=== PATIENT | female | born 1950 | race Caucasian/White ===

== ENCOUNTER → 2018-11-09 | Outpatient (CLI) | payer OTHER ==
[~2018-11-09] MED LIST: AMLO5 PO; ATEN50 PO; CALCIUM 600 +1 EAC4 PO; CENTRUM MU9 MG/15 ML PO; CIPR250 PO; ERGO400 PO; ESTER-C 1,0001 EACH PO; ESTMEDA PO; ESTR2 PO; FLUO10; HYDCHL25 PO; HYDR1TAB94 PO; LISI20 PO; MEDR2.5 PO; NAPR375 PO; POTASSIUM; TRAZ150T57 PO; Vitamin B Comple1 EA PO; ZINC PO; ZINC15 PO; [UNRECOGNIZED DRUG - REMARK]
== END | disposition home or self-care (01) ==
LOC: LAB SHORT 16:12 → LAB 16:12
DX: A49.9 Bacterial infection, unspecified (principal)
CPT/HCPCS: 87070

== ENCOUNTER 2018-12-06 13:17 | Day surgery (SDC) | payer OTHER ==
[~2018-12-06] VITALS: Ht 152.4 cm; Wt 50.0 kg
== END 2018-12-06 15:50 | disposition home or self-care (01) ==
LOC: ORSCSDS 13:17
PROVIDERS: Surgery
PROC: 0DJD8ZZ Inspection of Lower Intestinal Tract, Via Natural or Artificial Opening Endoscopic (ICD-10-PCS; principal; 2018-12-06 14:45)
DX: Z12.11 Encounter for screening for malignant neoplasm of colon (principal); Z86.010 Personal history of colon polyps; I10 Essential (primary) hypertension; E78.5 Hyperlipidemia, unspecified; K21.9 Gastro-esophageal reflux disease without esophagitis; F32.9 Major depressive disorder, single episode, unspecified; Z87.891 Personal history of nicotine dependence; Z79.899 Other long term (current) drug therapy
CPT/HCPCS: J7120

== ENCOUNTER → 2019-09-09 | Outpatient (CLI) | payer OTHER ==
[2019-09-09 10:40] LABS: Source, Urine Clean Catch
[2019-09-09 10:49] LABS: BASOPHILS ABSOLUTE AUTO 0.04 K/mm3 (0.00-0.23); BASOPHILS PERCENT AUTO 1 % (0-2); EOSINOPHILS ABSOLUTE AUTO 0.18 K/mm3 (0.00-0.68); EOSINOPHILS PERCENT AUTO 3 % (0-6); Hematocrit 36.2 % (33.0-51.0); Hemoglobin 11.3 g/dL (11.5-16.0); IMMATURE GRAN ABSOLUTE AUTO 0.02 K/mm3 (0.00-0.10); IMMATURE GRAN PERCENT AUTO 0 % (0-1); LYMPHOCYTES ABSOLUTE AUTO 1.17 K/mm3 (0.84-5.20); LYMPHOCYTES PERCENT AUTO 19 % (21-46); MONOCYTES ABSOLUTE AUTO 0.96 K/mm3 (0.16-1.47); MONOCYTES PERCENT AUTO 15 % (4-13); Mean Corpuscular HGB 24.7 pg (26.0-34.0); Mean Corpuscular HGB Conc 31.2 g/dL (31.5-36.5); Mean Corpuscular Volume 79 fL (80-100); Mean Platelet Volume 9.2 fL (9.1-12.4); NEUTROPHILS ABSOLUTE AUTO 3.88 K/mm3 (1.96-9.15); NEUTROPHILS PERCENT AUTO 62 % (41-73); Platelet Count 325 K/mm3 (150-400); RDW Coefficient Variation 22.1 % (11.7-14.2); RDW Standard Deviation 61.4 fL (35.1-46.3); Red Blood Cell Count 4.58 M/mm3 (3.80-5.20); White Blood Cell Count 6.25 K/mm3 (4.00-11.30)
[2019-09-09 10:56] LABS: Albumin, Blood 3.8 g/dL (3.4-5.0); Bilirubin, Total 1.2 mg/dL (0.1-1.0); Bun/Creatinine Ratio 10.8 (12.0-20.0); Creatinine, Blood 1.11 mg/dL (0.40-1.00); Globulin, Blood 3.8 g/dL (2.2-4.0); Potassium, Blood 3.1 mmol/L (3.5-5.5); Total Protein, Blood 7.6 g/dL (6.4-8.2)
[2019-09-09 11:02] LABS: Red Blood Cells, Urine 0-2 /hpf (0-2); Squamous Epithelial Cells Many /hpf (Few)
[2019-09-09 11:03] LABS: Bacteria Many /hpf
[2019-09-09 16:29] LABS: Percent Saturation 6.4 % (15.0-50.0)
== END | disposition home or self-care (01) ==
LOC: LAB EV 10:34 → LAB SHORT 10:34
PROVIDERS: General Practice
DX: D64.9 Anemia, unspecified (principal); R82.90 Unspecified abnormal findings in urine
CPT/HCPCS: 80053; 81015; 82728; 83540; 83550; 83690; 85025; 87077; 87086; 87186

== ENCOUNTER → 2019-11-08 | Outpatient (CLI) | payer OTHER | END | disposition home or self-care (01) | LOC: LAB 10:02 → LAB SHORT 10:02 | PROVIDERS: Nurse Practitioner | DX: Z01.419 Encounter for gynecological examination (general) (routine) without abnormal findings (principal) | CPT/HCPCS: G0123 ==

== ENCOUNTER 2020-01-24 21:29 | Emergency (ER) | payer OTHER ==
[~2020-01-24] VITALS: Ht 154.9 cm; Wt 56.7 kg
== END 2020-01-25 00:15 | disposition home or self-care (01) ==
LOC: ER 21:29
DX: S09.90XA Unspecified injury of head, initial encounter (principal); F10.129 Alcohol abuse with intoxication, unspecified; T42.4X5A Adverse effect of benzodiazepines, initial encounter; I10 Essential (primary) hypertension; Z88.2 Allergy status to sulfonamides; Z88.5 Allergy status to narcotic agent; Z79.899 Other long term (current) drug therapy; Z87.891 Personal history of nicotine dependence; W18.2XXA Fall in (into) shower or empty bathtub, initial encounter
CPT/HCPCS: 36415; 70450; 72125; 99285-25

== ENCOUNTER 2020-02-20 13:12 | Emergency (ER) | payer OTHER ==
[~2020-02-20 13:12] MED LIST changes: +C-500500 MG PO; -CENTRUM MU9 MG/15 ML PO; +Daily Multiple1 EACH PO; -ERGO400 PO; -ESTER-C 1,0001 EACH PO; -TRAZ150T57 PO; +TRAZ50 PO; +Vitamin D2000 UNIT PO
[2020-02-20] MEDS ORDERED: Norco 5-325 Ta1 EACH PO (17:07)
== END 2020-02-20 17:48 | disposition home or self-care (01) ==
DX: S52.502A Unspecified fracture of the lower end of left radius, initial encounter for closed fracture (principal); S52.602A Unspecified fracture of lower end of left ulna, initial encounter for closed fracture; S32.10XA Unspecified fracture of sacrum, initial encounter for closed fracture; I10 Essential (primary) hypertension; Z79.899 Other long term (current) drug therapy; Z88.2 Allergy status to sulfonamides; Z88.5 Allergy status to narcotic agent; Z87.891 Personal history of nicotine dependence; W18.30XA Fall on same level, unspecified, initial encounter

== ENCOUNTER 2020-02-22 10:36 | Inpatient (IN) | payer OTHER ==
[~2020-02-22] VITALS: Ht 167.6 cm; Wt 48.0 kg
[~2020-02-22 10:36] MED LIST changes: +Norco 5-325 Ta1 EACH PO
[2020-02-22 11:34] LABS: Source, Urine Clean Catch
[2020-02-22 11:37] LABS: Appearance, Urine Hazy (Clear); Bilirubin, Urine Neg (Neg); Blood, Urine 5+ (Neg); Color, Urine Yellow (P-Yellow); Glucose Qualitative, Urine Neg (Neg); Ketones, Urine Neg (Neg); Leukocyte Esterase, Urine 1+ (Neg); Nitrite, Urine Neg (Neg); Protein, Urine 2+ (Neg); Urobilinogen, Urine NORM (Normal)
[2020-02-22 11:44] LABS: BASOPHILS ABSOLUTE AUTO 0.05 K/mm3 (0.00-0.23); BASOPHILS PERCENT AUTO 0 % (0-2); EOSINOPHILS ABSOLUTE AUTO 0.04 K/mm3 (0.00-0.68); EOSINOPHILS PERCENT AUTO 0 % (0-6); Hematocrit 28.9 % (33.0-51.0); Hemoglobin 8.7 g/dL (11.5-16.0); IMMATURE GRAN ABSOLUTE AUTO 0.08 K/mm3 (0.00-0.10); IMMATURE GRAN PERCENT AUTO 1 % (0-1); LYMPHOCYTES ABSOLUTE AUTO 1.08 K/mm3 (0.84-5.20); LYMPHOCYTES PERCENT AUTO 8 % (21-46); MONOCYTES ABSOLUTE AUTO 2.09 K/mm3 (0.16-1.47); MONOCYTES PERCENT AUTO 15 % (4-13); Mean Corpuscular HGB 28.2 pg (26.0-34.0); Mean Corpuscular HGB Conc 30.1 g/dL (31.5-36.5); NEUTROPHILS PERCENT AUTO 76 % (41-73); RDW Coefficient Variation 17.5 % (11.7-14.2); RDW Standard Deviation 60.3 fL (35.1-46.3); Red Blood Cell Count 3.08 M/mm3 (3.80-5.20); White Blood Cell Count 14.04 K/mm3 (4.00-11.30)
[2020-02-22 11:57] LABS: Alanine Aminotransfer (ALT/SGP 17 U/L (12-78); Albumin, Blood 2.6 g/dL (3.4-5.0); Albumin/Globulin Ratio 0.6 (0.8-1.8); Alk Phos 83 U/L (50-136); Anion Gap 8 mmol/L (6-16); Aspartate Aminotrans (AST/SGOT 47 U/L (12-37); Bilirubin, Total 0.3 mg/dL (0.1-1.0); Blood Urea Nitrogen 15 mg/dL (8-24); Bun/Creatinine Ratio 19.2 (12.0-20.0); CO2, Blood 19 mmol/L (21-32); Calcium, Blood 8.2 mg/dL (8.5-10.1); Chloride, Blood 118 mmol/L (98-108); Creatinine, Blood 0.78 mg/dL (0.40-1.00); Ethanol (Alcohol), Blood, Med <3 mg/dL; Glomerular Filtration Rate >60 (60-); Glucose, Blood 112 mg/dL (70-99); Potassium, Blood 3.3 mmol/L (3.5-5.5); Sodium, Blood 145 mmol/L (136-145); Total Protein, Blood 6.6 g/dL (6.4-8.2); Troponin I <0.015 ng/mL (0.000-0.040)
[2020-02-22 12:09] LABS: U Cannabinoids Screen DETECTED; U Opiates Screen DETECTED
[2020-02-22 12:10] LABS: Mean Corpuscular Volume 94 fL (80-100)
[2020-02-22 12:10] LABS: U Amphetamine Screen Not Detected; U Barbituate Screen Not Detected; U Benzodiazapine Screen Not Detected; U Buprenorphine Screen Not Detected; U Cocaine Screen Not Detected; U Methadone Screen Not Detected; U Methamphetamine Screen Not Detected; U Oxycodone Screen Not Detected; U Phencyclidine Screen Not Detected; U Propoxyphene Screen Not Detected
[2020-02-22 12:13] LABS: Bacteria Many /hpf; Squamous Epithelial Cells Few /hpf (Few)
[2020-02-22 12:26] LABS: Mean Platelet Volume 10.3 fL (9.1-12.4); Platelet Count 444 K/mm3 (150-400)
--- NOTE | 2020-02-22 16:52 | NUR ---
PT ADMITTED. FALLING ASLEEP WHEN I STOP TALKING. STATES STILL HAS PAIN, BUT, FALLS ASLEEP. STATES PAIN MOSTLY WITH MOVEMENT. NOT AT REST MUCH. IS PRESENTLY SNORING. DID RECEIVE DILAUDID IN ER. PRESENTLY ON 2L O2 N/C . BED IN LOW POSITION, CALL LITE IN REACH, CALLS APPROP
--- NOTE | 2020-02-22 18:15 | NUR ---
PT HAS VISITED WITH DR CHILDERS THIS AFT. HE HAS JUST PLACED ORDERS FOR NPO MIDNITE FOR POSSIBLE ARM FX. ORDERED TRAY FOR TONITE DINNER.
--- NOTE | 2020-02-22 18:16 | NUR ---
PT PLEASANT SINCE ADMIT. ABLE TO GET ON BEDPAN. PAIN MANAGED WITH AVAIL MEDS. HAS BEEN SLEEPING MOSTLY SINCE ADMIT FROM ER. THEY GAVE DILAUDID FOR PAIN. PT STATES PAIN WITH MOVEMENT MOSTLY. NOT ABLE TO GET TO BSC YET. ORDERED DINNER BUT WILL BE NPO MIDNITE FOR POSSIBLE WRIST/ARM FX TOMORROW. PT HAS BRUISE ON L HIP FROM FALL., ALSO L ARM CAST FROM ER. PT AWAKENS TO ANSWER QUESTIONS, THEN FALLS ASLEEP. WAS ON 2L O2 , REMOVED, PT SATIING AT 98 % R/A AT THIS TIME. ICE FOR HIP PAIN, AND WILL CONTINUE TO MONITOR
--- NOTE | 2020-02-23 03:37 | NUR ---
Pt remained in bed all night with no new complaints. Pt requested pain medication every couple hours for hip pain. Alert and oriented to time, place person, and situation however, pt is forgetful and confused at times. Used bedpan several times to void with assistance. Patient does not tolerate movement and did not want to be repositioned at all during the night. Pt reported nausea and vomitted early in the shift but reported no nausea after recieving zofran. Pt rests quietly in between recieving medication with the call light at her side.
--- NOTE | 2020-02-23 03:38 | NUR ---
SUMMARY NO NEW ISSUES NOTED THIS SHIFT. PT AOX3, FORGETFUL. PT HAD RECURRENT L HIP DISCOMFORT. PT PAIN MANAGED WELL. PT REMAINED IN BED T/O SHIFT. PT HAS BEEN ABLE TO USE BEDPAN W/ ASSISTANCE. PT IS FRUSTRATED DUE TO NOT HAVING HER EYEGLASSES. PT STATES DAUGHTER IS BRINGING THEM IN AM. PT HAS REMAINED NPO SINCE MIDNIGHT. PT DID HAVE EPISODE OF N/V AND ZOFRAN WAS ORDERED FROM PROVIDER SHAMAR. N/V RELIEVED. PT CURRENTLY AWAKE AND WATCHING TV. CALL LIGHT IN REACH. PT FORGETS TO USE CALL LIGHT AND YELLS OUT FOR ASSISTANCE. BED ALARM ON FOR SAFETY.
[2020-02-23 05:18] LABS: BASOPHILS ABSOLUTE AUTO 0.06 K/mm3 (0.00-0.23); BASOPHILS PERCENT AUTO 1 % (0-2); EOSINOPHILS PERCENT AUTO 3 % (0-6); Hematocrit 28.2 % (33.0-51.0); Hemoglobin 8.6 g/dL (11.5-16.0); IMMATURE GRAN ABSOLUTE AUTO 0.04 K/mm3 (0.00-0.10); IMMATURE GRAN PERCENT AUTO 0 % (0-1); LYMPHOCYTES ABSOLUTE AUTO 1.95 K/mm3 (0.84-5.20); LYMPHOCYTES PERCENT AUTO 19 % (21-46); MONOCYTES ABSOLUTE AUTO 1.77 K/mm3 (0.16-1.47); MONOCYTES PERCENT AUTO 17 % (4-13); Mean Corpuscular HGB 28.5 pg (26.0-34.0); Mean Corpuscular HGB Conc 30.5 g/dL (31.5-36.5); Mean Corpuscular Volume 93 fL (80-100); Mean Platelet Volume 10.1 fL (9.1-12.4); NEUTROPHILS PERCENT AUTO 61 % (41-73); Platelet Count 445 K/mm3 (150-400); RDW Coefficient Variation 17.6 % (11.7-14.2); RDW Standard Deviation 60.6 fL (35.1-46.3); Red Blood Cell Count 3.02 M/mm3 (3.80-5.20); White Blood Cell Count 10.52 K/mm3 (4.00-11.30)
[2020-02-23 05:44] LABS: Alanine Aminotransfer (ALT/SGP 17 U/L (12-78); Albumin, Blood 2.4 g/dL (3.4-5.0); Albumin/Globulin Ratio 0.6 (0.8-1.8); Alk Phos 74 U/L (50-136); Anion Gap 8 mmol/L (6-16); Aspartate Aminotrans (AST/SGOT 42 U/L (12-37); Bilirubin, Total 0.4 mg/dL (0.1-1.0); Blood Urea Nitrogen 12 mg/dL (8-24); Bun/Creatinine Ratio 16.4 (12.0-20.0); CO2, Blood 20 mmol/L (21-32); Calcium, Blood 8.5 mg/dL (8.5-10.1); Chloride, Blood 115 mmol/L (98-108); Creatinine, Blood 0.73 mg/dL (0.40-1.00); Globulin, Blood 3.9 g/dL (2.2-4.0); Glomerular Filtration Rate >60 (60-); Glucose, Blood 90 mg/dL (70-99); Magnesium, Blood 2.1 mg/dL (1.6-2.4); Phosphorus, Blood 2.6 mg/dL (2.5-4.9); Potassium, Blood 3.5 mmol/L (3.5-5.5); Sodium, Blood 143 mmol/L (136-145); Total Protein, Blood 6.3 g/dL (6.4-8.2)
--- NOTE | 2020-02-23 13:16 | NUR ---
Patient tells me about her fall and the plan for surgery today. Patient talks about her family, her [employer] background and about real with cancer. Patient tells me personal information. I listen empathically, hear confession, normalize patient's experience and provide pastoral counselling psychologist and prayer. Patient responds well and shows signs of catharsis and increased peace. I will continue to remain available to patient and family.
--- NOTE | 2020-02-23 19:23 | NUR ---
SHIFT SUMMARY: NO ACUTE CHANGES TO REPORT THIS SHIFT. PT A&O X2-3; OCC CONFUSION; FORGETFUL; CALM & COOPERATIVE WITH CARE. MEDICATED FOR L HIP PAIN PER EMAR. IV ABX CONTINUING. ORIF OF L WRIST PLANNED FOR 02/23. REPORT GIVEN TO ONCOMING RN.
--- NOTE | 2020-02-24 08:20 | NUR ---
Rn summary: Patient is alert and oriented. Patient is having pelvic pain and was medicated x2 with percocet 2 tabs and fentanyl 25mcg x2. Pt gets moderate relief. Pt states it is about a 4 at rest and 8-9 when she moves. Pt did just doze on and off. Pt has been NPO for surgery today on Left wrist. Pt has good movement in left fingers, good color and sensation. Pt is able to use the bedpan for voiding, lifts buttocks up, unable to turn. Call light in reach. Winifred coffman. Report to Sohail SIM.
--- NOTE | 2020-02-24 14:55 | NUR ---
pt arrived to room 209 via bed pt is awake l wrist is elev on pillow can wiggle fingers cool to the touch pt wanting us to call her daughter fredi and needed to void so assisted her onto the bedpan
--- NOTE | 2020-02-24 17:58 | NUR ---
pt eating dinner pulled out her iv earlier when she woke from a nap placed a new one restarted her abx dr redding by to see pt
--- NOTE | 2020-02-25 04:31 | NUR ---
SHIFT SUMMARY PT HAS BEEN A/O X3. SHE IS CONFUSED/FORGETFUL AT TIMES, BUT GENERALLY KNOWS WHERE SHE IS AND WHY. PT REPORTS DISCOMFORT WITH MOVEMENT, MOSTLY IN HIPS. PAIN MANAGED WITH PO PAIN MED PER ORDERS. PT WEARS ATTENS AND USES BEDPAN TO VOID. SHE REPOSITIONS SELF IN BED AND HAS BEEN ASSISTED WITH BEDPAN AND REPOSITIONING PRN. NO ACUTE CHANGES OVERNIGHT. HUMA WRAP IN PLACE TO L HAND/WRIST.
--- NOTE | 2020-02-25 07:12 | NUR ---
ASSUMED PATIENT CARE. PATIENT SITTING UP AT EDGE OF BED, NO SIGNS OF ACUTE DISTRESS. CONVERSING WITH NURSING STAFF. WCTM.
--- NOTE | 2020-02-25 17:21 | NUR ---
NO ACUTE EVENTS THIS SHIFT. PATIENT REMAINED HYPERTENSIVE THIS SHIFT, DR. SPRINGER NOTIFIED AND LISINOPRIL WAS ORDERED FOR BP CONTROL WHICH PROVED TO HAVE AN IMPACT ON PATIENT BP. PATIENT WAS ABLE TO TOLERATE VOIDS IN BEDPAN THROUGH THIS SHIFT, CALLS APPROPRIATELY. PATIENT REMAINS SLIGHTLY CONFUSED TODAY, MAKES STATEMENTS INAPROPRIATE TO SITUATION SUCH "NURSES NEEDING TO [facility]" AND HOW THE PATIENT "WILL BE TOO BUSY TO WORK WITH PHYSICAL THERAPY TOMORROW BECAUSE [SHE] HAS TOO MANY MEETINGS TO GO TO." PATIENT'S PAIN WAS WELL MANAGED WITH PO PAIN MEDICATIONS. HUMA WRAP TO L. WRIST STILL IN PLACE. PLAN IS TO CONTINUE IV ABX THROUGH TOMORROW.
--- NOTE | 2020-02-25 19:08 | NUR ---
RELINQUISHED PATIENT CARE.
[2020-02-26 04:12] LABS: BASOPHILS ABSOLUTE AUTO 0.06 K/mm3 (0.00-0.23); BASOPHILS PERCENT AUTO 1 % (0-2); EOSINOPHILS ABSOLUTE AUTO 0.42 K/mm3 (0.00-0.68); EOSINOPHILS PERCENT AUTO 5 % (0-6); Hematocrit 31.1 % (33.0-51.0); Hemoglobin 9.6 g/dL (11.5-16.0); IMMATURE GRAN ABSOLUTE AUTO 0.06 K/mm3 (0.00-0.10); IMMATURE GRAN PERCENT AUTO 1 % (0-1); LYMPHOCYTES PERCENT AUTO 17 % (21-46); MONOCYTES ABSOLUTE AUTO 1.49 K/mm3 (0.16-1.47); MONOCYTES PERCENT AUTO 16 % (4-13); Mean Corpuscular HGB Conc 30.9 g/dL (31.5-36.5); Mean Corpuscular Volume 91 fL (80-100); Mean Platelet Volume 9.6 fL (9.1-12.4); NEUTROPHILS ABSOLUTE AUTO 5.56 K/mm3 (1.96-9.15); NEUTROPHILS PERCENT AUTO 61 % (41-73); Platelet Count 492 K/mm3 (150-400); RDW Coefficient Variation 17.4 % (11.7-14.2); RDW Standard Deviation 58.5 fL (35.1-46.3); Red Blood Cell Count 3.43 M/mm3 (3.80-5.20); White Blood Cell Count 9.09 K/mm3 (4.00-11.30)
--- NOTE | 2020-02-26 04:31 | NUR ---
SHIFT SUMMARY PT HAS BEEN A/O X3; HAS BEEN PRETTY CONFUSED UPON AWAKENING AND IS FORGETFUL. PT HAS BEEN USING BEDPAN WITH ASSISTANCE AND HAS ATTENS IN PLACE FOR OCC. INCONTINENCE. PAIN MANAGED WITH PO PAIN MEDS PER ORDERS. BED ALARM ON. PT TOLERATING PO INTAKE AND VOIDING. HAD BM THIS SHIFT. L HAND/WRIST HUMA WRAPPED. NO ACUTE CHANGES. ASSISTED WITH ADL'S PRN.
[2020-02-26 04:32] LABS: Alanine Aminotransfer (ALT/SGP 15 U/L (12-78); Albumin, Blood 2.4 g/dL (3.4-5.0); Albumin/Globulin Ratio 0.6 (0.8-1.8); Alk Phos 91 U/L (50-136); Anion Gap 9 mmol/L (6-16); Aspartate Aminotrans (AST/SGOT 23 U/L (12-37); Bilirubin, Total 0.3 mg/dL (0.1-1.0); Blood Urea Nitrogen 18 mg/dL (8-24); Bun/Creatinine Ratio 22.4 (12.0-20.0); CO2, Blood 24 mmol/L (21-32); Calcium, Blood 8.7 mg/dL (8.5-10.1); Chloride, Blood 109 mmol/L (98-108); Globulin, Blood 4.3 g/dL (2.2-4.0); Glomerular Filtration Rate >60 (60-); Glucose, Blood 118 mg/dL (70-99); Potassium, Blood 4.1 mmol/L (3.5-5.5); Sodium, Blood 142 mmol/L (136-145); Total Protein, Blood 6.7 g/dL (6.4-8.2)
--- NOTE | 2020-02-26 11:14 | NUR ---
LEFT WRIST PT DOES NOT FOLLOW NWB TO LEFT WRIST, SLING APPLIED TO LEFT ARM
--- NOTE | 2020-02-26 12:06 | NUR ---
1030 PT TRANSFERRED TO ROOM 224 SO CAN BE CLOSER TO RN STATION DUE TO HIGH FALL RISK
--- NOTE | 2020-02-26 12:07 | NUR ---
PT ROOM PLACED ON SECURITY CAMERA DUE TO IMPULSIVENESS TO GET OOB AND IS HIGH FALL RISK
--- NOTE | 2020-02-26 13:12 | NUR ---
AGITATION PT WITH INCREASED AGITATION, FREQUENT ATTEMPTS TO GET OOB AND DOES NOT FOLLOW NWB INSTRUCTION TO LEFT WRIST. PT REMINDED OF NWB TO LEFT WRIST THEN IMMEDIATELY USES LEFT SRM TO PUSH SELF OFF OF CHAIR. PT ASKS TO GET INTO CHAIR THOUGH IS ALREADY SITTING IN CHAIR. VISIBLE TREMORS . CIWA 11. SPOKE WITH DR SPRINGER VIA PHONE AND NEW ORDERS WILL BE ENTERED
--- NOTE | 2020-02-26 14:23 | NUR ---
1400 INCREASED AGITATION, ATTEMPTS TO GET OOB. DR SPRINGER CONTACTED AND ORDERS RECEIVED. MARY ECHEVERRIA
--- NOTE | 2020-02-26 14:40 | NUR ---
1400 PT REQUIRING 1;1 SUPERVISION, PICKING AT AIR, THROWING LEGS OVER EDGE OF BED, DIAPHORETIC. AWAITING BED AVAILABILITY SO PATIENT CAN TRANSFER TO HIGHER LEVEL OF CARE
--- NOTE | 2020-02-26 15:12 | NUR ---
1510 TRANSFER TO ICU 9 WITH BELONGINGS. PT HAS NOT SIGNED CONSENT FOR STAFF TO SPEAK WITH FAMILY/FRIENDS. PT DOES NOT ANSWER WHEN ASKED IF I COULD CONTACT FAMILY OR FRIEND. RADIO ELECTRONICS TECHNICIAN KANDICE GARCIA AWARE THAT FAMILY HAS NOT BEEN NOTIFIED OF TRANSFER
--- NOTE | 2020-02-26 15:23 | NUR ---
WRIST RESTRAINTS CONTACED MELISSA JIMENEZ AT APROX 1510 REGARDING RESTRAINTS BEING PLACED ON POST OP ORIF L WRIST. MELISSA VERBAL ORDER TO NOT PLACE PT L WRIST IN RESTRAINTS IT COULD CAUSE DAMAGE TO THE SURGICAL REPAIR. CIVIL STRUCTURAL ENGINEER NOTIFIED OF THIS ORDER.
[2020-02-26 17:30] LABS: Source, Urine Catheter
[2020-02-26 17:34] LABS: Bilirubin, Urine Neg (Neg); Blood, Urine 1+ (Neg); Glucose Qualitative, Urine Neg (Neg); Ketones, Urine Neg (Neg); Leukocyte Esterase, Urine Neg (Neg); Nitrite, Urine Neg (Neg); Protein, Urine 1+ (Neg); Urobilinogen, Urine NORM (Normal); pH, Urine 6.5 (5.0-8.0)
[2020-02-26 18:09] LABS: Appearance, Urine Clear (Clear); Color, Urine Yellow (P-Yellow)
[2020-02-26 18:10] LABS: Red Blood Cells, Urine Not Seen /hpf (0-2); White Blood Cells, Urine Rare /hpf (0-5)
[2020-02-26 18:11] LABS: Bacteria Rare /hpf; Squamous Epithelial Cells Rare /hpf (Few)
--- NOTE | 2020-02-26 18:14 | NUR ---
TRANSFER TO ICU/SHIFT SUMMARY PT ARRIVED TO ICU 9 AT 1500 VIA BED. PT IS THRASHING IN BED UPON ARRIVAL AND UNABLE TO BE REDIRECTED OR FOLLOW AND VERBAL COMMANDS. PT IS MOANING OUT AT TIMES. WILL NOT ANSWERING ANY QUESTIONS. PT MOVED TO ICU BED. PT PLACED IN MARY VEST, BILAT SOFT ANKLE RESTRAINTS, AND RIGHT WRIST RESTRAINT. LEFT WRIST WITH SOFT CAST IN PLACE S/P SURGICAL REPAIR, ORDERS NOT TO USE LEFT WRIST RESTRAINT. PT CONTINUES TO THRASH IN BED. PT WITH NO IV ACCESS. 4MG IM ATIVAN GIVEN, IV ACCESS OBTAINED, AND PRECEDEX GTT STARTED. PT CONTINUED TO VIGOROUSLY PULL AT RESTRAINTS. PT MED WITH ATIVAN IV PER EMAR. APROX 1730 PT BECAME CALM AND IS RESTING QUIETLY. VITAL SIGNS STABLE AT THIS TIME, PT PLACED ON 2L O2 NC. WEST CATH PLACED, UA SENT. PT WITH SKIN TEAR TO RIGHT ELBOW, MEPILEX PLACED. PRECEDEX INFUSING AT 0.5 MCG/KG/MIN AT THIS TIME. WILL CONTINUE TO MONITOR AND REPORT OFF TO ONCOMING RN.
--- NOTE | 2020-02-26 20:02 | NUR ---
ASSUMED CARE OF PT, REPORT RCV'D FROM RONEY IBANEZ. PT SLEEPING, SEDATED WITH PRECEDEX 0.5 MCG/KG/HR. PT OPENS EYES TO VERBAL STIMULUS, MUMBLES YES/NO ANSWERS APPROPRIATELY TO QUESTIONS AND THEN QUICKLY FALLS BACK TO SLEEP. PT HAS SOFT CAST ON RIGHT ARM D/T FRACTURE. MARY VEST, RIGHT SOFT WRIST RESTRAINT AND BILATERAL SOFT ANKLE RESTRAINTS REMAIN IN PLACE TO DISCOURAGE UNSAFE AMBULATION AND PULLING AT LINES/CORDS. WILL REASSESS NECESSARY. PT ON 1L NC WITH O2 SATS IN MID 90'S. EXPIRATORY WHEEZE HEARD BILATERAL UPPER LOBES. WEST PATENT AND DRAINING LIGHT YELLOW URINE. SEE FULL SHIFT ASSESSMENT
--- NOTE | 2020-02-27 05:57 | NUR ---
SHIFT SUMMARY PT STABLE OVERNIGHT. PRECEDEX REMAINED AT 0.3 MCG/KG/HR FOR MAJORITY OF NIGHT. AT 0330 PT AWOKE AND WAS QUICKLY AGITATED, PULLING ON RESTRAINTS AND ATTEMPTING TO GET OUT OF BED. PT REORIENTED AND REMINDED TO AVOID PUTTING WEIGHT ON LEFT UPPER EXTREMITY D/T FRACTURE. PT CONTINUES TO TRY AND CLIMB OUT OF BED, REFUSING REPOSITIONING AT THIS TIME. PT FREQUENTLY REORIENTED. PT REQUIRED 0-3L NC PRN, MOSTLY REQUIRING OXYGEN WITH EXERTION (PULLING ON RESTRAINTS, ATTEMPTING TO SIT UP) PRECEDEX GTT INCREASED TO 0.5 MCG/KG/HR. BED IN LOW/LOCKED POSITION. DOOR/CURTAIN REMAIN OPEN. WILL REPORT TO DAYSHIFT NURSE.
--- NOTE | 2020-02-27 08:58 | NUR ---
ASSUMED CARE OF PT AT 0700. REPORT FROM FERNANDA SIM. PT APPEARS TO BE SLEEPING. AT SHIFT CHANGE, PRECEDEX INFUSING AT 0.4 MCG/KG/HR, PT RESPONSIVE ONLY TO PAINFUL STIMULI. PRECEDEX DECREASED TO 0.2 MCG/KG/HR. PT WAKES SPONTANEOUSLY, YELLS OUT INTERMITTANTLY. ABLE TO REDIRECT. A&OX 2. ASKING TO SPEAK c DAUGHTER. DAUGHTER CALLED AND UPDATED. PT ABLE TO SWALLOW PILLS c APPLESAUCE. MEDICATED c NORCO AND LIBRUIM. SPLINT TO LEFT FOREARM, CAP REFILL <3 SEC, P/W/D. WILL CONTINUE TO MONITOR.
[2020-02-27 16:47] LABS: BASOPHILS ABSOLUTE AUTO 0.08 K/mm3 (0.00-0.23); BASOPHILS PERCENT AUTO 1 % (0-2); EOSINOPHILS ABSOLUTE AUTO 0.35 K/mm3 (0.00-0.68); EOSINOPHILS PERCENT AUTO 3 % (0-6); Hematocrit 32.2 % (33.0-51.0); IMMATURE GRAN ABSOLUTE AUTO 0.08 K/mm3 (0.00-0.10); IMMATURE GRAN PERCENT AUTO 1 % (0-1); LYMPHOCYTES ABSOLUTE AUTO 2.34 K/mm3 (0.84-5.20); LYMPHOCYTES PERCENT AUTO 21 % (21-46); MONOCYTES ABSOLUTE AUTO 1.31 K/mm3 (0.16-1.47); MONOCYTES PERCENT AUTO 12 % (4-13); Mean Corpuscular HGB 28.2 pg (26.0-34.0); Mean Corpuscular HGB Conc 31.1 g/dL (31.5-36.5); Mean Corpuscular Volume 91 fL (80-100); NEUTROPHILS ABSOLUTE AUTO 7.15 K/mm3 (1.96-9.15); NEUTROPHILS PERCENT AUTO 63 % (41-73); Platelet Count 503 K/mm3 (150-400); RDW Coefficient Variation 17.7 % (11.7-14.2); RDW Standard Deviation 59.2 fL (35.1-46.3); Red Blood Cell Count 3.54 M/mm3 (3.80-5.20); White Blood Cell Count 11.31 K/mm3 (4.00-11.30)
[2020-02-27 17:04] LABS: Magnesium, Blood 2.2 mg/dL (1.6-2.4)
[2020-02-27 17:09] LABS: Alanine Aminotransfer (ALT/SGP 22 U/L (12-78); Albumin, Blood 2.6 g/dL (3.4-5.0); Albumin/Globulin Ratio 0.6 (0.8-1.8); Alk Phos 123 U/L (50-136); Anion Gap 11 mmol/L (6-16); Aspartate Aminotrans (AST/SGOT 61 U/L (12-37); Bilirubin, Total 0.3 mg/dL (0.1-1.0); Blood Urea Nitrogen 17 mg/dL (8-24); CO2, Blood 20 mmol/L (21-32); Chloride, Blood 111 mmol/L (98-108); Creatinine, Blood 0.74 mg/dL (0.40-1.00); Globulin, Blood 4.4 g/dL (2.2-4.0); Glomerular Filtration Rate >60 (60-); Glucose, Blood 86 mg/dL (70-99); Phosphorus, Blood 3.4 mg/dL (2.5-4.9); Potassium, Blood 4.1 mmol/L (3.5-5.5); Sodium, Blood 142 mmol/L (136-145)
--- NOTE | 2020-02-27 17:21 | NUR ---
SHIFT SUMMARY PT REMAINED ON PRECEDEX ENTIRE SHIFT, ATTEMPTED TO DECREASE AND GIVE PO LIBRIUM. PT YELLING HELP INTERMITTANTLY, PULLING ON RESTRAINTS. INFUSING AT 0.4 UNITS/KG/HR. CIWA 14-16. VSS. PT ABLE TO TAKE MEDS c SMALL SIPS OF WATER. NS STARTED AT 100ML/HR. WILL CONTINUE TO MONITOR UNTIL REPORT TO ONCOMING NURSE.
--- NOTE | 2020-02-27 19:56 | NUR ---
ASSUMED CARE OF PT, REPORT RCV'D FROM RONEY NEGRON. PT ALERT TO SELF AND LOCATION, UNABLE TO RECALL MONTH/YEAR OR WHY SHE'S IN THE HOSPITAL. PT YELLING OUT "HELP ME" AND ATTEMPTING TO SIT UP AND GET OUT OF BED. PT REMINDED THAT SHE IS IN THE HOSPITAL AND THAT SHE HAS A FRACTURED LEFT ARM AND PELVIS. PT ENCOURAGED TO REST AND AVOID PUTTING WEIGHT LEFT ARM. PRECEDEX GTT AT 0.5 MCG/KG/HR, ADMINISTERED 4 MG ATIVAN FOR CIWA 19. NS @ 100 ML/HR. SATS MID 90'S ON ROOM AIR. PT REMAINS IN BILATERAL SOFT ANKLE RESTRAINT, SOFT RIGHT WRIST RESTRAINT AND MARY TO PREVENT UNSAFE AMBULATION. SEE FULL SHIFT ASSESSMENT
[2020-02-28 04:04] LABS: Anion Gap 6 mmol/L (6-16); Blood Urea Nitrogen 15 mg/dL (8-24); Bun/Creatinine Ratio 21.1 (12.0-20.0); CO2, Blood 24 mmol/L (21-32); Calcium, Blood 8.2 mg/dL (8.5-10.1); Chloride, Blood 114 mmol/L (98-108); Creatinine, Blood 0.71 mg/dL (0.40-1.00); Glomerular Filtration Rate >60 (60-); Glucose, Blood 91 mg/dL (70-99); Potassium, Blood 3.5 mmol/L (3.5-5.5); Sodium, Blood 144 mmol/L (136-145)
--- NOTE | 2020-02-28 05:24 | NUR ---
SHIFT SUMMARY NO ACUTE CHANGES OVERNIGHT. PT HAS PERIODS OF WAKEFULNESS WITH COOPERATION FOLLOWED BY CONFUSION AND AGITATION. PT REPORTING PAIN IN LEFT HIP THIS MORNING. MEDICATED PER EMAR. PRECEDEX @ 0.4 MCG/KG/HR, EFFORTS TO TITRATE BELOW 0.4 RESULT IN INCREASED AGITATION AND PT YELLING "HELP ME". VSS T/O SHIFT. PT PLACED ON 1L O2 PRN. BILATERAL SOFT ANKLE RESTRAINT, MARY AND RIGHT WRIST SOFT RESTRAINT REMAIN IN PLACE. WILL REPORT TO DAYSHIFT NURSE.
--- NOTE | 2020-02-28 07:57 | NUR ---
Received report from Isidro SIM. Patient resinging at report time and then shortly hafter awakens yelling out for fredi. When telling her there is no fredi her she states that she needs some thiong then ask for water I let her know she is NPO but did mouth swab. She is alert to self, place and reason for admission. She is drowsy and is slow to resond. She is on 1 L O2 via NC and sats 98%. She has three IV's, 20ga RH dressing intact and site WNL's and is infusing Precedex at 0.4 mcg/kg/hr. [employer] has 20ga IV RFA dressing intact and site WNL's and is infusing NS at 100 ml/hr.Her 3rd IV is 20 ga LAC xdressing intact and site WNL's and is flushed and SL'd. She has Mepelex dressing to R elbow. She has 16 Fr [place] draining to gravity dark yellow urine. She is in bilateral soft LE, RW and [place], as to prevent from getting up and pulling at lines and tubes when awake.
--- NOTE | 2020-02-28 08:50 | NUR ---
Vj bandage to left wrist C/D/I and no current complaints of pain
--- NOTE | 2020-02-28 10:53 | NUR ---
Patient received bath and linen change with repositioned. She tolerated pills in apple sauce poorly and placed order for speech eval. She continues to yell out for help and then staes no reason for help. Placed on RA and sats 98%. She has been hypertensive and will allow am meds to take effect prior to etra meds. She is able to follow minimal directions. Turned off Precedex as she is having a hard tome staying awake and paying attention. Speech in room now.
--- NOTE | 2020-02-28 14:14 | NUR ---
Dr Salter by to see patient and had brief conversation. She remains very drowsy and NPO until further speech eval. She is slightly hypertensive while awake. She remains on RA and sats 98%. Precedex remains off and NS at 100 ml/hr continues. Called daughter and let her talk with her and gave update. Tremors decreased. She used call light appropriately.
--- NOTE | 2020-02-28 16:19 | NUR ---
Patient has been more awake and has been following directions. Medicated for 8/10 left hip pain. VSS See EMR and slightly hypertensive. RA and sats 98%. She is sitting up in bed watching TV. Precedex remains off. CIWA 5
--- NOTE | 2020-02-28 18:23 | NUR ---
Patient has been doing better. She has been doing slight repositioning herself. She is still very painful to hip and medicated for pain. She tolerated pain meds in apple sauce when she was wide awake, but remains NPO as Fentanyl too short term. She sats 96% on RA. NS at 100ml/hr continues. Precedex continues to remains off.
--- NOTE | 2020-02-28 20:27 | NUR ---
ASSUMED CARE OF PT, REPORT RCV'D FROM RONEY LARES. PT ALERT TO SELF/SITUATION/PLACE, FOLLOWING DIRECTIONS. PT COOPERATIVE WITH CARE AND ATTEMPTS TO HELP ABLE. PT REPORTS 8/10 PAIN IN "HIP AND ARM", MEDICATED PER EMAR. BED ALARM ON, BED IN LOCKED POSITION, DOOR/CURTAIN OPEN, CALL LIGHT WITHIN REACH. VSS. PT DENIES NEEDS AT THIS TIME. SEE FULL SHIFT ASSESSMENT.
--- NOTE | 2020-02-28 23:56 | NUR ---
MIDSHIFT ASSESSMENT PT MUCH MORE ALERT AND ORIENTED, PT ABLE TO STATE WHERE SHE IS, WHY SHE IS AT [facility], ABLE TO RECALL MONTH/YEAR. PT EXPERIENCING 8-10/10 PAIN IN HIP DESPITE FENTANYL AND REPOSITIONING. SAT PATIENT UP HIGH AND ADMINISTERED PO PERCOCET (SPLIT IN HALF) IN APPLESAUCE. PT HAD NO DIFFICULTY SWALLOWING. STAYED AT BEDSIDE FOR 15 MINS TO CONTINUE OBSERVATION. PT MORE ABLE TO EXPRESS NEEDS AND HELP WITH REPOSITIONING.
[2020-02-29 05:26] LABS: BASOPHILS ABSOLUTE AUTO 0.05 K/mm3 (0.00-0.23); BASOPHILS PERCENT AUTO 1 % (0-2); EOSINOPHILS ABSOLUTE AUTO 0.41 K/mm3 (0.00-0.68); EOSINOPHILS PERCENT AUTO 4 % (0-6); Hematocrit 31.5 % (33.0-51.0); Hemoglobin 9.7 g/dL (11.5-16.0); IMMATURE GRAN ABSOLUTE AUTO 0.07 K/mm3 (0.00-0.10); IMMATURE GRAN PERCENT AUTO 1 % (0-1); LYMPHOCYTES PERCENT AUTO 21 % (21-46); MONOCYTES ABSOLUTE AUTO 1.26 K/mm3 (0.16-1.47); MONOCYTES PERCENT AUTO 14 % (4-13); Mean Corpuscular HGB 28.3 pg (26.0-34.0); Mean Corpuscular HGB Conc 30.8 g/dL (31.5-36.5); Mean Corpuscular Volume 92 fL (80-100); Mean Platelet Volume 9.8 fL (9.1-12.4); NEUTROPHILS ABSOLUTE AUTO 5.58 K/mm3 (1.96-9.15); NEUTROPHILS PERCENT AUTO 60 % (41-73); Platelet Count 487 K/mm3 (150-400); RDW Coefficient Variation 17.4 % (11.7-14.2); RDW Standard Deviation 58.6 fL (35.1-46.3); Red Blood Cell Count 3.43 M/mm3 (3.80-5.20); White Blood Cell Count 9.27 K/mm3 (4.00-11.30)
--- NOTE | 2020-02-29 05:36 | NUR ---
SHIFT SUMMARY NO ACUTE CHANGES OVERNIGHT. PT REMAINED ALERT AND ORIENTED, PLEASANT AND COOPERATIVE WITH CARE. PT EXPERIENCED PAIN CONSISTENTLY T/O SHIFT SPECIFICALLY IN HER HIPS. PRECEDEX REMAINED ON STANDBY T/O SHIFT, RESTRAINTS REMAIN OFF, AND PT DID NOT REQUIRE ANY ATIVAN. CIWA AT START OF SHIFT 8, CURRENT CIWA 0. BED ALARM REMAINS ON. 1100 CLEAR URINARY OUTPUT. WILL REPORT TO DAYSHIFT NURSE.
[2020-02-29 05:42] LABS: Alanine Aminotransfer (ALT/SGP 18 U/L (12-78); Albumin, Blood 2.4 g/dL (3.4-5.0); Albumin/Globulin Ratio 0.6 (0.8-1.8); Alk Phos 149 U/L (50-136); Anion Gap 8 mmol/L (6-16); Aspartate Aminotrans (AST/SGOT 34 U/L (12-37); Bilirubin, Total 0.3 mg/dL (0.1-1.0); Blood Urea Nitrogen 11 mg/dL (8-24); Bun/Creatinine Ratio 15.2 (12.0-20.0); CO2, Blood 22 mmol/L (21-32); Calcium, Blood 8.5 mg/dL (8.5-10.1); Chloride, Blood 112 mmol/L (98-108); Creatinine, Blood 0.72 mg/dL (0.40-1.00); Globulin, Blood 4.1 g/dL (2.2-4.0); Glomerular Filtration Rate >60 (60-); Glucose, Blood 81 mg/dL (70-99); Magnesium, Blood 1.8 mg/dL (1.6-2.4); Potassium, Blood 3.6 mmol/L (3.5-5.5); Sodium, Blood 142 mmol/L (136-145); Total Protein, Blood 6.5 g/dL (6.4-8.2)
--- NOTE | 2020-02-29 08:20 | NUR ---
Received report from Isidro SIM. Patient resting when entering room and awakens easily to verbal stimuli. She is oriented to self, place, event and family. She is able to communicate her needs. She is very anxious to eat or have coffee. Speech called and is coming to eval her again and are in room now. She is able to reposition self slight in bed and is painful to left hip when moving. She has glasses. phone and purse at bedside. She remains on RA and sats in the upper 90%'s. She has 20ga to right wrist dressing intact and site WNL's and flushed and SL'd. She has 20ga IV to RFA and dressining intact and site WNL's and is infusing NS at 100ml/hr. She also has 20ga IV to LAC dressining intact and site WNL's and is flushed and SL'd. She has 16 Fr farah draining to gravity clear yellow urine. She has HUMA wrap to left wrist covering cast that was repaired 02/26. She is hypertensive 170 and will give meds post speech eval.
--- NOTE | 2020-02-29 09:33 | NUR ---
Speech eval passed patient to be able to eat per eval results. She tolerated am meds with pudding and vanilla Ensure. She is currently eating diet tray that speech ordered. Ryder;l Dr Salter for prn bp med and medicated for pain at same time. Now that she is able to take PO meds I started her on [place] 25mg for mild agitation. She remains on RA and sats 98%.
--- NOTE | 2020-02-29 12:00 | NUR ---
Patient up to chair with PT and remains up for lunch and tolerated well feeding self with some assistance. She remains on NS at 100ml/hr. RA and sats upper 90%'s. Dr Salter by to assess and has made her medical status w/o tele. Continue to medicate as per need and MAR. Left wrist cast and dressing C/D/I.
--- NOTE | 2020-02-29 14:39 | NUR ---
Gave report to Jamia RN. Patient [facility], with thre bags of personal belongings and blanket from home and on her bed was phone, brush, purse. Emptied 1200 ml clear yellow from farah. She was transferred to [place] [id number] bed by three person slide and slider sheet. She remains on RA and sats upper 90%'s.
--- NOTE | 2020-02-29 15:19 | NUR ---
ICU TRANSFER- PT ARRIVED TO ROOM 305 VIA BED, PT A 3 PERSON SLIDE INTO BED. PT REPORTS 10/10 TO LEFT WRIST AND LEFT HIP, PRN PERCOCET GIVEN. LS DIMINISHED ON RA, RESP E/U. HRR, NO TELE. NO EDEMA PRESENT. SOFT CAST TO LEFT ARM, NWB STATUS. WEST PATENT AND DRAINING CLEAR YELLOW. IV X3, NS AT 100ML/HR STARTED. PT ABLE TO SIT UP IN BED INDEP AND NEEDS ASSISTANCE REPOSITIONING TO SIDE. CIWA 5. PT ORIENTED TO ROOM AND CALL SYSTEM, CALL LIGHT IN REACH AND BED ALARM ON.
[2020-02-29] MEDS ORDERED: AMIT10 PO (15:54)
[2020-02-29] MEDS ORDERED: Prozac20 MG PO (15:54)
[2020-02-29] MEDS ORDERED: BACL20 PO (15:55)
--- NOTE | 2020-03-01 04:28 | NUR ---
SHIFT SUMMARY ASSUMED CARE OF PT AT 1900. PT IS A/OX3 BUT IS FORGETFUL AND CONFUSED AT TIMES. FOR EXAMPLE, PT ASKED WHEN THIS NURSE WOULD HANG ANOTHER BAG ON THE IV POLE BUT THE BAG WAS CHANGES 30MIN AGO. PT ALSO ASKED HOW TO USE THE TV REMOTE AND WHEN EXPLAINED THAT THE HOSPITAL DOESNT CARRY THE CHANNEL SHE WAS LOOKING FOR SHE REPEATIVLY TRIED TO USE THE CHANNEL AND STATE "ITS NOT WORKING". HEART SOUNDS REGULAR, LUNG SOUNDS DIMINISHED, DENIES SOB/CP. PT IS PAINFUL IN HERL HIP AND ARM, MEDICATED PER EMAR. CATHETER DRAINING WITH GRAVITY, URINE CLEAR AND YELLOW. NO ACUTE EVENTS DURING THE NIGHT, PT DID NOT SLEEP WELL DURING THE NIGHT. CALL LIGHT IN REACH, BED IN LOWEST POSITION, WILL CONTINUE TO MONITOR UNTIL DAYSHIFT NURSE ARRIVES.
--- NOTE | 2020-03-01 18:01 | NUR ---
SHIFT SUMMARY PATIENT PLEASANT AND COOPERATIVE T/O SHIFT. A&O X4 WITH NO ACUTE CHANGES. STILL EXPERIENCING PAIN CONSISTENTLY AT A RATE OF 8/10 IN LEFT ARM AND LEFT HIP. PERCOCET GIVEN Q4H PER EMAR. PATIENT STILL REPORTS 8/10 DURING REASSESSMENT OF PAIN AFTER MEDICATION ADMINISTRATION. PATIENT DOES NOT APPEAR TO BE IN ANY DISTRESS OR DISCOMPORT AT THIS TIME. FLUIDS HAVE BEEN D/C. PATIENT GOT UP TO CHAIR FOR MEALS AND TO THE COMMODE TODAY WITH 2 PERSON ASSIST. PATIENT HAS BEEN APPROVED FOR SELF FEEDS BY SPEECH THERAPY. WEST CATHERTER WAS REMOVED AND PATIENT VOIDED 200 ML AFTER REMOVAL. CALL LIGHT IS WITHIN REACH AND BED IS POSITIONED AT ITS LOWEST. POSSIBLE D/C TO SNF TOMORROW.
--- NOTE | 2020-03-02 05:09 | NUR ---
SHIFT SUMMARY PT HAS BEEN PLEASANT AND COOPERATIVE THIS EVENING. CIWA SCORE 0. PT DOES CONTINUE TO REPORT PAIN TO LEFT HIP AND ARM, CONSISTENTLY 8/10 WHILE AWAKE BUT FELL ASLEEP AFTER BEING MEDICATED FOR PAIN. PT VOIDED WELL THIS EVENING USING THE BED CLINE. PT SLEPT WELL THIS EVENING, WAKING SEVERAL TIMES REQUIRING PAIN MEDICATION BUT OTHERWISE SLEEPING. VITAL SIGNS STABLE THIS EVENING. AFEBRILE. NO ACUTE CHANGES THIS SHIFT. WILL CONTINUE TO MONITOR AND REPORT TO DAY RN.
[2020-03-02] MEDS ORDERED: Prinivil10 MG PO (09:58)
[2020-03-02] MEDS ORDERED: ONDA4ODT MM (09:58)
[2020-03-02] MEDS ORDERED: MIRALAX17 GM PO (09:59)
[2020-03-02] MEDS ORDERED: Percocet 5-3251 EACH PO (09:59)
--- NOTE | 2020-03-02 14:47 | NUR ---
FACILITY D/C. TRANSPORT HERE AT 1445. IV REMOVED INTACT. PACKET HANDED TO TRANSPORT. NO TELE. PT CHEERFUL. REPORT CALLED TO JOSUE AT [facility].
== END 2020-03-02 15:20 | DRG 511 ==
LOC: ER 10:36 → ICUW 14:32 → MEDS 14:32 → SURS 14:32 → MEDS 15:12 → SURS 02-24 14:42 → ICUW 02-26 15:02 → MEDS 02-29 14:22
PROVIDERS: Internal Medicine; Internal Medicine Gastroenterology; Orthopaedic Surgery; Physician Assistant; ADMIT Hospitalist
PROC: 0PSJ04Z Reposition Left Radius with Internal Fixation Device, Open Approach (ICD-10-PCS; principal; 2020-02-24 12:30)
DX: S52.502A Unspecified fracture of the lower end of left radius, initial encounter for closed fracture (principal); S32.592A Other specified fracture of left pubis, initial encounter for closed fracture; S32.10XA Unspecified fracture of sacrum, initial encounter for closed fracture; N39.0 Urinary tract infection, site not specified; F10.239 Alcohol dependence with withdrawal, unspecified; W18.30XA Fall on same level, unspecified, initial encounter; Z87.891 Personal history of nicotine dependence; I12.9 Hypertensive chronic kidney disease with stage 1 through stage 4 chronic kidney disease, or unspecified chronic kidney disease; N18.3 Chronic kidney disease, stage 3 (moderate); J44.9 Chronic obstructive pulmonary disease, unspecified; Z92.3 Personal history of irradiation; F32.9 Major depressive disorder, single episode, unspecified; G89.4 Chronic pain syndrome; Y90.0 Blood alcohol level of less than 20 mg/100 ml; S62.102A Fracture of unspecified carpal bone, left wrist, initial encounter for closed fracture; M81.0 Age-related osteoporosis without current pathological fracture; B96.20 Unspecified Escherichia coli [E. coli] as the cause of diseases classified elsewhere; E87.6 Hypokalemia
CPT/HCPCS: 36415; 51702; 72192; 73502; 80048; 80053; 81001; 83605; 83735; 84100; 84484; 85025; 87077; 87086; 87186; 92526; 92610; 93005; 93010; 94762; 96374; 97110; 97112; 97162; 97166; 97530; 97535; 99285-25; A9270-GY; C1713; G0480; J0694; J1100; J1170; J1650; J2060; J2270; J2405; J2704; J3010; J7030; J7050; J7120

== ENCOUNTER 2020-03-20 11:16 | Inpatient (IN) | payer OTHER ==
[~2020-03-20] VITALS: Ht 152.4 cm; Wt 44.4 kg
[~2020-03-20 11:16] MED LIST changes: +MIRALAX17 GM PO; +ONDA4ODT MM; +Percocet 5-3251 EACH PO; +Prinivil10 MG PO; +Prozac40 MG PO; -TRAZ50 PO
[2020-03-20 11:38] LABS: Source, Urine Clean Catch
[2020-03-20 11:59] LABS: BASOPHILS ABSOLUTE AUTO 0.05 K/mm3 (0.00-0.23); BASOPHILS PERCENT AUTO 0 % (0-2); EOSINOPHILS ABSOLUTE AUTO 0.08 K/mm3 (0.00-0.68); EOSINOPHILS PERCENT AUTO 1 % (0-6); Hemoglobin 10.4 g/dL (11.5-16.0); IMMATURE GRAN ABSOLUTE AUTO 0.07 K/mm3 (0.00-0.10); IMMATURE GRAN PERCENT AUTO 1 % (0-1); LYMPHOCYTES ABSOLUTE AUTO 1.12 K/mm3 (0.84-5.20); LYMPHOCYTES PERCENT AUTO 9 % (21-46); MONOCYTES PERCENT AUTO 9 % (4-13); Mean Corpuscular HGB 26.3 pg (26.0-34.0); Mean Corpuscular HGB Conc 28.9 g/dL (31.5-36.5); Mean Corpuscular Volume 91 fL (80-100); Mean Platelet Volume 10.2 fL (9.1-12.4); NEUTROPHILS ABSOLUTE AUTO 10.35 K/mm3 (1.96-9.15); NEUTROPHILS PERCENT AUTO 81 % (41-73); Platelet Count 442 K/mm3 (150-400); RDW Coefficient Variation 16.9 % (11.7-14.2); RDW Standard Deviation 57.1 fL (35.1-46.3); Red Blood Cell Count 3.95 M/mm3 (3.80-5.20); White Blood Cell Count 12.87 K/mm3 (4.00-11.30)
[2020-03-20 12:15] LABS: U Amphetamine Screen Not Detected; U Barbituate Screen Not Detected; U Benzodiazapine Screen DETECTED; U Methamphetamine Screen Not Detected
[2020-03-20 12:16] LABS: U Buprenorphine Screen Not Detected; U Cannabinoids Screen DETECTED; U Cocaine Screen Not Detected; U Methadone Screen Not Detected; U Opiates Screen DETECTED; U Oxycodone Screen Not Detected; U Phencyclidine Screen Not Detected; U Propoxyphene Screen Not Detected
[2020-03-20 12:19] LABS: Alanine Aminotransfer (ALT/SGP 18 U/L (12-78); Albumin, Blood 3.4 g/dL (3.4-5.0); Albumin/Globulin Ratio 0.8 (0.8-1.8); Alk Phos 176 U/L (50-136); Anion Gap 9 mmol/L (6-16); Aspartate Aminotrans (AST/SGOT 31 U/L (12-37); Bilirubin, Total 0.4 mg/dL (0.1-1.0); Blood Urea Nitrogen 16 mg/dL (8-24); Bun/Creatinine Ratio 21.1 (12.0-20.0); CO2, Blood 19 mmol/L (21-32); CPK Creatine Kinase 197 U/L (26-193); Calcium, Blood 9.8 mg/dL (8.5-10.1); Chloride, Blood 114 mmol/L (98-108); Creatinine, Blood 0.76 mg/dL (0.40-1.00); Ethanol (Alcohol), Blood, Med <3 mg/dL; Globulin, Blood 4.4 g/dL (2.2-4.0); Glomerular Filtration Rate >60 (60-); Glucose, Blood 120 mg/dL (70-99); Potassium, Blood 3.9 mmol/L (3.5-5.5); Salicylate <1.7 mg/dL (2.8-20.0); Sodium, Blood 142 mmol/L (136-145); Total Protein, Blood 7.8 g/dL (6.4-8.2)
[2020-03-20 12:23] LABS: Leukocyte Esterase, Urine Neg (Neg); Nitrite, Urine Neg (Neg); Protein, Urine Trace (Neg)
[2020-03-20 12:24] LABS: Appearance, Urine Clear (Clear); Bilirubin, Urine 1+ (Neg); Blood, Urine Neg (Neg); Color, Urine Yellow (P-Yellow); Glucose Qualitative, Urine Neg (Neg); Ketones, Urine 2+ (Neg); Urobilinogen, Urine NORM (Normal)
[2020-03-20 12:27] LABS: Acetaminophen, Random <2.0 ug/mL (10.0-30.0)
[2020-03-20 13:05] LABS: Creatine Kinase MB 4.5 ng/mL (0.0-3.6); Creatine Kinase MB Index 2.3 (0.0-4.0)
[2020-03-20] MEDS ORDERED: Desyrel150 MG PO (13:48)
[2020-03-20] MEDS ORDERED: LETR2.5 PO (13:50)
[2020-03-20] MEDS ORDERED: Aspir 8181 MG PO (13:51)
[2020-03-20] MEDS ORDERED: BACL20 PO (13:53)
[2020-03-20] MEDS ORDERED: AMIT10 PO (13:53)
[2020-03-20] MEDS ORDERED: HYDR1TAB94 PO (14:03)
--- NOTE | 2020-03-20 16:52 | NUR ---
Received report from MEDICAL OFFICE SUPERVISOR and was brought to ICU 3 via gurney and in 4 point restraints. She was a four person left transfer and reapplied bilateral soft wrist and left legs un restrained. Patient is able to communicate but denies any suicidal attempt and juststated that she hurts yony is why she took her pills. She wants to see her daughter. She is squirming in bed. She has left wrist support in place. She has farah catheter in place draing ken colored urine. crusher machine operator notified in room.
[2020-03-20 17:17] LABS: Alanine Aminotransfer (ALT/SGP 18 U/L (12-78); Albumin, Blood 3.2 g/dL (3.4-5.0); Albumin/Globulin Ratio 0.8 (0.8-1.8); Alk Phos 173 U/L (50-136); Anion Gap 8 mmol/L (6-16); Aspartate Aminotrans (AST/SGOT 28 U/L (12-37); Bilirubin, Total 0.3 mg/dL (0.1-1.0); Blood Urea Nitrogen 15 mg/dL (8-24); Bun/Creatinine Ratio 19.7 (12.0-20.0); CO2, Blood 22 mmol/L (21-32); Calcium, Blood 9.3 mg/dL (8.5-10.1); Chloride, Blood 115 mmol/L (98-108); Creatinine, Blood 0.76 mg/dL (0.40-1.00); Globulin, Blood 4.1 g/dL (2.2-4.0); Glomerular Filtration Rate >60 (60-); Glucose, Blood 107 mg/dL (70-99); Magnesium, Blood 2.2 mg/dL (1.6-2.4); Phosphorus, Blood 3.2 mg/dL (2.5-4.9); Potassium, Blood 3.1 mmol/L (3.5-5.5); Sodium, Blood 145 mmol/L (136-145); Total Protein, Blood 7.3 g/dL (6.4-8.2)
[2020-03-20 18:42] LABS: Osmolality, Serum 304 mos/KG (275-300)
--- NOTE | 2020-03-20 19:03 | NUR ---
Gave report to Antoine SIM. Patient remains awake and calling out for daughter. She continues moving all around bed lifting legs up and down. Placed new IV and started LR at 125ml/hr. Just gave Hydralazine for systolic continueing in the 170's. She remains in bilateral soft wrist restraints skin and circulation checked.
--- NOTE | 2020-03-20 19:19 | NUR ---
ASSUMED CARE AT 1915. REPORT RECEIVED AT BEDSIDE. PT PRESENTS IN BED. SOFT BI LAT RESTRAINTS SECONDARY TO AMS AND PULLING AT LINES AND IMPULSIVENESS. PT CALLS OUT FOR HER DAUGHTER JIAN OFTEN. EXPLAINED TO PT THAT HER DAUGHTER HAS NOT BEEN ANSWERING HER TELEPHONE WHEN RN ATTEMPTS TO MAKE CONTACT. PT REPEATS YELLING OUT FOR HER DAUGHTER. DOES NOT REDIRECT. PT HAS BEEN MOVING ABOUT BED AND IS VERY RESTLESS. WILL REVIEW CHART AND PLAN OF CARE FOR THIS PT.
--- NOTE | 2020-03-20 20:25 | NUR ---
PT CALLS OUT FOR PAIN MEDICATIONS AND FOR HER DAUGTER OFTEN. ALSO HAS MANAGED TO PULL OFF HER TELEMETRY LEADS SEVERAL TIMES. REASSURED PT THAT ATTEMPTS TO CONTACT HER DAUGHTER HAS BEEN UNSUCCESSFUL. CALL GOES TO ANSWERING MACHINE, AND INFORMS THAT THE MACHINE IS FULL. PT ARGUEMENTATAIVE ABOUT CALLS. INFORMED PT THAT SECONDARY TO HAVING NARCAN ADMINISTERED SECONDARY TO OVERDOSE, THAT NO NARCOTICS HAVE BEEN ORDERED. PT WILL CALL OUT FOR HER DAUGHTER AND PAIN MEDICATIONS OFTEN. PULLS ON RESTRAINTS AND IS NOT EASILY REDIRECTABLE.
--- NOTE | 2020-03-21 01:37 | NUR ---
PT REMAINS AWAKE. HAS BEEN ABLE TO PULL OFF HER ADHESIVE OXIMETER, AND PULL LEADS. HAS NOT BEEN ABLE TO GET AHOLD OF HER CATHETER. PROVIDED PT WITH POSITIONING AND PILLOWS FOR COMFORT. ALSO PROVIDED LIP BALM FOR HER LIPS. PT REMAINS CONFUSED THOUGH IS RATHER PLEASANT. NEEDS FREQUENTLY REORIENTING. WILL CONTINUE TO MONITOR PT FOR HER SAFETY.
[2020-03-21 03:51] LABS: BASOPHILS ABSOLUTE AUTO 0.05 K/mm3 (0.00-0.23); BASOPHILS PERCENT AUTO 1 % (0-2); EOSINOPHILS ABSOLUTE AUTO 0.05 K/mm3 (0.00-0.68); EOSINOPHILS PERCENT AUTO 1 % (0-6); Hematocrit 35.5 % (33.0-51.0); Hemoglobin 10.5 g/dL (11.5-16.0); IMMATURE GRAN ABSOLUTE AUTO 0.06 K/mm3 (0.00-0.10); IMMATURE GRAN PERCENT AUTO 1 % (0-1); LYMPHOCYTES ABSOLUTE AUTO 1.29 K/mm3 (0.84-5.20); LYMPHOCYTES PERCENT AUTO 14 % (21-46); MONOCYTES ABSOLUTE AUTO 1.42 K/mm3 (0.16-1.47); MONOCYTES PERCENT AUTO 15 % (4-13); Mean Corpuscular HGB 26.3 pg (26.0-34.0); Mean Corpuscular HGB Conc 29.6 g/dL (31.5-36.5); Mean Corpuscular Volume 89 fL (80-100); Mean Platelet Volume 10.1 fL (9.1-12.4); NEUTROPHILS ABSOLUTE AUTO 6.61 K/mm3 (1.96-9.15); NEUTROPHILS PERCENT AUTO 70 % (41-73); Platelet Count 445 K/mm3 (150-400); RDW Coefficient Variation 17.1 % (11.7-14.2); RDW Standard Deviation 55.8 fL (35.1-46.3); Red Blood Cell Count 3.99 M/mm3 (3.80-5.20); White Blood Cell Count 9.48 K/mm3 (4.00-11.30)
[2020-03-21 04:14] LABS: Alanine Aminotransfer (ALT/SGP 18 U/L (12-78); Albumin, Blood 3.1 g/dL (3.4-5.0); Albumin/Globulin Ratio 0.7 (0.8-1.8); Alk Phos 164 U/L (50-136); Anion Gap 8 mmol/L (6-16); Aspartate Aminotrans (AST/SGOT 33 U/L (12-37); Bilirubin, Total 0.3 mg/dL (0.1-1.0); Blood Urea Nitrogen 15 mg/dL (8-24); Bun/Creatinine Ratio 24.1 (12.0-20.0); CO2, Blood 21 mmol/L (21-32); Calcium, Blood 9.3 mg/dL (8.5-10.1); Chloride, Blood 115 mmol/L (98-108); Creatinine, Blood 0.62 mg/dL (0.40-1.00); Globulin, Blood 4.2 g/dL (2.2-4.0); Glomerular Filtration Rate >60 (60-); Glucose, Blood 108 mg/dL (70-99); Magnesium, Blood 1.9 mg/dL (1.6-2.4); Potassium, Blood 3.4 mmol/L (3.5-5.5); Sodium, Blood 144 mmol/L (136-145); Total Protein, Blood 7.3 g/dL (6.4-8.2)
--- NOTE | 2020-03-21 07:30 | NUR ---
Receieved report from Antoine SIM. Patient sitting up in bed and calling out for daughter. Have sat with her and calrified about daughter with her and has very short term memory recognition. She is hypertensive and has a hard time relaxing and from report has bnot slept all night. She is on RA and sats mid to upper 90%'s. She has 18ga IV to KAYLIN, dressing intact and site WNL's and is infusing LR at 125ml/hr. She is still in bilateral soft wrist restraints and not to pull at line andf get out of bed. She is very active in bed and then c/o hip pain.
--- NOTE | 2020-03-21 08:26 | NUR ---
Safety Plan completed partially due to patient denying suicide attempt. She reports taking 3 Vicadin due to pain. She reports going to sleep and not sure how she got to hospital. ED notes refelct that daughter reports pt. called her to say she "was not going to be around much longer". Pt reports she was alcoholic and had DUI 4 years ago in [place] where she lives. Reports no previous suicide attempts, and reports she is on one med for depression. Pt presents as somewhat disoriented at times. She denies drinking recently. Clinical Coordinator informed of pt denial of drinking, but pt presents with odd behaviors of sitting cross legged and placing head on bed in front of her, and long pauses during interview when she would look up and outside the room. Denies hearing voices or sounds. Denies previous suicide attempts. Pt arms were restrained next to her, and she would bend her head to apply chapstick that was in her hand. She has her father's WW [employer] rifle at home and denies ammo availability. She lives at home alone and her daughter Merary brings her food and checks on her every other day. She reports using an upright walker. Safety Plan left with patient with crisis numbers highlighted. Berna Hill M.Ed., [facility]
--- NOTE | 2020-03-21 09:43 | NUR ---
Berna from [facility] s been by for safety plan but patient un able to participate. Patient denies any suicidal idaeas and denies suicide attempt. She does state she took pills and is tired of pain. She remains on RA nand sats in the mid to upper 90%'s. Dr Gomez was sent consult sheet. She is being transfered to [facility] and will remainin bilateral soft wrist restraints. I was able to contact daughter and she was ablet to talk with her as well. Daughter will be in after 1530 from work. All personal belongings taken with patient. Patient LR has been reduced to 75ml/hr.
--- NOTE | 2020-03-21 15:49 | NUR ---
PER OK TO DO ONE NOW FOR BACLOFEN THAT SHE GETS TID.
--- NOTE | 2020-03-21 16:35 | NUR ---
PATIENT ARRIVED TRANSFER FROM ICU ABOUT 0930. ALERT TO; SELF, PLACE AND FAMILY. COOPERATIVE. NO RESTRAINTS NEEDED AT THIS TIME. C/O PAIN TO VARIOUS PARTS OF HER BODY. ADVISED BECAUSE TOOK ; NARCS, BENZO AND OTHER MEDS SHE MAY NOT GET ANY PAIN MEDS. CAMERA ON. ROOM HARM FREE. IV PATENT. VSS. GIVEN TYLENOL FOR PAIN. HAS VISIT WITH DAUGHTER WHO WILL BE HER RIDE WHEN D'C. TELEPSYCH SCHEDULED FOR TOMORROW AT 0900. HUYEN
--- NOTE | 2020-03-21 16:43 | NUR ---
PATIENT DAUGHTER, JIAN, JIMI THIS IS NOT THE FIRST TIME PATIENT HAS TRIED TO HARM HERSELF. STS PATIENT WAS SUPPOSE TO BE IN ADAPT FOR 6 MONTHS, BUT SHOWED UP FOR 2 CLASSES. STS PATIENT MAKES PROMISES BUT DOES NOT FOLLOW THROUGH. STS AT THIS TIME GRANDCHILDREN AND GREAT GRANDKIDS ARE NOT ALLOWED TO SEE PATIENT DUE TO HER HABITS.
--- NOTE | 2020-03-21 17:32 | NUR ---
Per admit trigger, I was tasked to meet with Katey to offer education about advanced care planning. Katey was very pleasant, but confused. She was clearly unable to grasp a detailed conversation about her wishes. WE had a dameon talk regardless and an easy rapport. She continues to deny taking more than "3 pills" for pain relief. She says she had no desire to end her life. No zoroastrianism preferance, but Katey appeared to benefit from companionship and encouragement. I will remain available.
--- NOTE | 2020-03-22 03:52 | NUR ---
ADMISSION INTERVENTION NOT DONE ON ADMIT, QUESTIONS ANSWERED. PER ER QUESTIONS AND PRIMARY EQUINE PHARMACOLOGY TECHNICIAN QUESTIONS.
[2020-03-22 05:10] LABS: BASOPHILS ABSOLUTE AUTO 0.03 K/mm3 (0.00-0.23); BASOPHILS PERCENT AUTO 0 % (0-2); EOSINOPHILS PERCENT AUTO 6 % (0-6); Hematocrit 31.6 % (33.0-51.0); Hemoglobin 9.8 g/dL (11.5-16.0); IMMATURE GRAN ABSOLUTE AUTO 0.03 K/mm3 (0.00-0.10); IMMATURE GRAN PERCENT AUTO 0 % (0-1); LYMPHOCYTES ABSOLUTE AUTO 1.69 K/mm3 (0.84-5.20); LYMPHOCYTES PERCENT AUTO 21 % (21-46); MONOCYTES ABSOLUTE AUTO 1.22 K/mm3 (0.16-1.47); MONOCYTES PERCENT AUTO 15 % (4-13); Mean Corpuscular HGB 27.5 pg (26.0-34.0); Mean Corpuscular Volume 89 fL (80-100); NEUTROPHILS ABSOLUTE AUTO 4.62 K/mm3 (1.96-9.15); NEUTROPHILS PERCENT AUTO 57 % (41-73); RDW Coefficient Variation 17.3 % (11.7-14.2); RDW Standard Deviation 55.5 fL (35.1-46.3); Red Blood Cell Count 3.57 M/mm3 (3.80-5.20); White Blood Cell Count 8.09 K/mm3 (4.00-11.30)
[2020-03-22 05:28] LABS: Mean Platelet Volume 10.3 fL (9.1-12.4); Platelet Count 327 K/mm3 (150-400)
[2020-03-22 05:31] LABS: Alanine Aminotransfer (ALT/SGP 20 U/L (12-78); Albumin, Blood 2.6 g/dL (3.4-5.0); Albumin/Globulin Ratio 0.6 (0.8-1.8); Alk Phos 142 U/L (50-136); Anion Gap 6 mmol/L (6-16); Aspartate Aminotrans (AST/SGOT 41 U/L (12-37); Bilirubin, Total 0.4 mg/dL (0.1-1.0); Blood Urea Nitrogen 16 mg/dL (8-24); Bun/Creatinine Ratio 24.1 (12.0-20.0); CO2, Blood 22 mmol/L (21-32); Calcium, Blood 8.7 mg/dL (8.5-10.1); Chloride, Blood 115 mmol/L (98-108); Creatinine, Blood 0.66 mg/dL (0.40-1.00); Globulin, Blood 4.3 g/dL (2.2-4.0); Glomerular Filtration Rate >60 (60-); Glucose, Blood 95 mg/dL (70-99); Potassium, Blood 4.3 mmol/L (3.5-5.5); Sodium, Blood 143 mmol/L (136-145); Total Protein, Blood 6.9 g/dL (6.4-8.2)
--- NOTE | 2020-03-22 05:50 | NUR ---
SHIFT SUMMARY PATIENT CALM AND COOPORATIVE OVERNIGHT. HAD TIMES OF CONFUSION WHERE SHE DIDN'T QUITE UNDERSTAND WHAT WAS BEING EXPLAINED TO HER AND SHE WOULD OCCASIONALLY ASK THE SAME QUESTION SEVERAL TIMES. PATIENT HAS NOT INDICATED ANY DESIRE OR PLAN TO END HER LIFE. IV PATENT AND FLUSHED. ROOM CLEAR OF ANY HAZARDOUS OBJECTS. BED IN LOWEST POSITION WITH WHEELS LOCKED. CALL LIGHT WITHIN REACH. REPORT GIVEN TO ONCOMING RN.
--- NOTE | 2020-03-22 14:35 | NUR ---
Initial palliaitive care consult: Angela is a 69 year old with a history of hyperlipidemia, anemia, ETOH, depression, insomia, chronic pain, HTN, COPD, CKD stage 3, dysphagia, osteoporosis. She was recently fell and has a fractured L wrist and pelvic fractures. She was at rehab at [facility] but was recently discharged home. She was brought into the hospital with a drug overdose. She is followed by [facility] and has had a telepsych consult. She lives alone. She reports her daughter helps by bringing meals and assisting with the laundry. She ambulates with a walker and has a shower bench. She states that she took three vicodin to help with her pelvic pain and then doesn't remember anything else until waking up at the hospital. She states she was not trying to harm herself. 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 She states she isn't sure when she will be able to go back to work with her fractures. She is alert and oriented. She appears to remember some events of her hospital stay. She has trouble finding the right words at times. Her affect is flat. She wants to go home but states that she thinks her daughter will want her to stay here overnight again. She reports she didn't sleep well last night due to another patient across the son from her who was being loud. Meera, [facility] community home care manager, visited during my visit. Meera reports that Angela will be re-evaluated tomorrow by psych and then a plan for a safe discharge will be made with input from physicians, staff, Angela and her dtr. Angela states she is agreeable to this plan although she would prefer to be able to go home today. She reports no pain at this time while she is sitting in bed. She has a wrist brace present to her left wrist. She is hoping her dtr will be in to visit this afternoon after her dtr gets off from work. Emotional support given. PC will follow prn for symptom management.
--- NOTE | 2020-03-22 18:21 | NUR ---
PT AO AND COOPERATIVE OF CARE NO DISTRESS NOTED. PT DENIES ANY SI INTENTIONS AT THIS TIME. PT HAS BEEN HAPPY TO REST IN BED MOST OF THE DAY. WILL CONTINUE TO MONITOR.
--- NOTE | 2020-03-23 06:45 | NUR ---
SHIFT SUMMARY FORGETFUL REGARDING USE OF HER CALL LIGHT. SHE HAS REPORTED NO THOUGHTS OF KILLING HERSELF OR PLANS TO DO SO IN THE FUTURE. TELE IN PLACE. PATIENT HAS BEEN VOIDING WITH NO COMPLAINTS SINCE HAVING HER WEST REMOVED. BED IN LOWEST POSITION WITH WHEELS LOCKED. PATIENT UP IN CHAIR WITH CHAIR ALARM ON. CALL LIGHT WITHIN REACH. REPORT GIVEN TO ONCOMING RN.
[2020-03-23] MEDS ORDERED: IBUP600 PO (13:06)
[2020-03-23] MEDS ORDERED: ACET325 PO (13:06)
[2020-03-23] MEDS ORDERED: [UNRECOGNIZED DRUG - OTHER] PO (13:08)
[2020-03-23] MEDS ORDERED: Prinivil10 MG PO (13:11)
--- NOTE | 2020-03-23 17:17 | NUR ---
PATIENT D/C'D TO HOME WITH DAUGHTER WITH HOME HEALTH. DC INSTRUCTIONS AND EDUCATION DISCUSSED WITH PATIENT AND COPY PROVIDED. RX MEDICATIONS FAXED TO [facility]. PATIENT DENIES ANY FURTHER QUESTIONS OR CONCERNS. [facility] TO CONTACT PATIENT WITH FOLLOW UP APPOINTMENT.
== END 2020-03-23 17:18 | disposition home health service (06) | DRG 918 ==
LOC: ER 11:16 → MEDS 14:55 → ICUW 14:55 → ICUE 14:55 → MEDS 03-21 10:08 → ENPENDDIS 03-23 10:00 → MEDS 03-23 17:18
PROVIDERS: Emergency Medicine; ADMIT Hospitalist
DX: T50.901A Poisoning by unspecified drugs, medicaments and biological substances, accidental (unintentional), initial encounter (principal); E87.2 Acidosis; N18.3 Chronic kidney disease, stage 3 (moderate); I12.9 Hypertensive chronic kidney disease with stage 1 through stage 4 chronic kidney disease, or unspecified chronic kidney disease; E78.5 Hyperlipidemia, unspecified; J44.9 Chronic obstructive pulmonary disease, unspecified; M81.0 Age-related osteoporosis without current pathological fracture; Z90.11 Acquired absence of right breast and nipple; Z85.3 Personal history of malignant neoplasm of breast; Z87.891 Personal history of nicotine dependence; I16.0 Hypertensive urgency; F32.9 Major depressive disorder, single episode, unspecified; Y92.9 Unspecified place or not applicable; G89.4 Chronic pain syndrome; F10.20 Alcohol dependence, uncomplicated; Y90.0 Blood alcohol level of less than 20 mg/100 ml; D50.9 Iron deficiency anemia, unspecified
CPT/HCPCS: 36415; 51702; 70450; 80053; 82550; 82553; 82947; 83605; 83735; 83930; 84100; 85025; 87077; 87081; 93005; 93010; 96374-59; 97110; 97163; 97530; 99285-25; G0480; J0360; J1650; J2250; J3480; J7120

== ENCOUNTER 2020-06-07 15:37 | Inpatient (IN) | payer OTHER ==
[~2020-06-07] VITALS: Ht 152.4 cm; Wt 42.8 kg
[~2020-06-07 15:37] MED LIST changes: +ACET325 PO; +AMIT10 PO; +Aspir 8181 MG PO; +BACL20 PO; +Desyrel150 MG PO; +IBUP600 PO; +LETR2.5 PO; +[UNRECOGNIZED DRUG - OTHER] PO
[2020-06-07 16:22] LABS: BASOPHILS ABSOLUTE AUTO 0.01 K/mm3 (0.00-0.23); BASOPHILS PERCENT AUTO 0 % (0-2); EOSINOPHILS PERCENT AUTO 0 % (0-6); Hematocrit 26.2 % (33.0-51.0); Hemoglobin 7.7 g/dL (11.5-16.0); IMMATURE GRAN ABSOLUTE AUTO 0.09 K/mm3 (0.00-0.10); IMMATURE GRAN PERCENT AUTO 1 % (0-1); LYMPHOCYTES ABSOLUTE AUTO 0.49 K/mm3 (0.84-5.20); LYMPHOCYTES PERCENT AUTO 5 % (21-46); MONOCYTES ABSOLUTE AUTO 0.33 K/mm3 (0.16-1.47); MONOCYTES PERCENT AUTO 3 % (4-13); Mean Corpuscular HGB 25.4 pg (26.0-34.0); Mean Corpuscular HGB Conc 29.4 g/dL (31.5-36.5); Mean Corpuscular Volume 87 fL (80-100); Mean Platelet Volume 9.5 fL (9.1-12.4); NEUTROPHILS ABSOLUTE AUTO 8.89 K/mm3 (1.96-9.15); NEUTROPHILS PERCENT AUTO 91 % (41-73); NRBC ABSOLUTE 0.02 K/mm3 (0.00-0.02); NRBC Auto 0.2 /100 WBC (0.0-0.2); Platelet Count 414 K/mm3 (150-400); RDW Coefficient Variation 18.9 % (11.7-14.2); RDW Standard Deviation 60.1 fL (35.1-46.3); Red Blood Cell Count 3.03 M/mm3 (3.80-5.20); White Blood Cell Count 9.81 K/mm3 (4.00-11.30)
[2020-06-07 16:39] LABS: Albumin, Blood 2.5 g/dL (3.4-5.0); Albumin/Globulin Ratio 0.6 (0.8-1.8); Bilirubin, Total 0.4 mg/dL (0.1-1.0); Bun/Creatinine Ratio 13.8 (12.0-20.0); Creatinine, Blood 1.16 mg/dL (0.40-1.00); Globulin, Blood 4.4 g/dL (2.2-4.0); Potassium, Blood 3.2 mmol/L (3.5-5.5); Total Protein, Blood 6.9 g/dL (6.4-8.2)
[2020-06-07] MEDS ORDERED: Aspir 8181 MG PO (19:11)
[2020-06-07 19:33] LABS: International Normalized Ratio 1.1; Prothrombin Time Results 11.7 Sec (9.7-11.5)
[2020-06-07 19:37] LABS: Source, Urine Clean Catch
[2020-06-07 19:44] LABS: Bilirubin, Urine Neg (Neg); Blood, Urine Neg (Neg); Glucose Qualitative, Urine Neg (Neg); Ketones, Urine 2+ (Neg); Leukocyte Esterase, Urine 2+ (Neg); Nitrite, Urine Neg (Neg); Protein, Urine 2+ (Neg); Urobilinogen, Urine NORM (Normal)
[2020-06-07 19:56] LABS: U Amphetamine Screen Not Detected; U Barbituate Screen Not Detected; U Benzodiazapine Screen Not Detected; U Buprenorphine Screen Not Detected; U Cannabinoids Screen Not Detected; U Cocaine Screen Not Detected; U Methadone Screen Not Detected; U Methamphetamine Screen Not Detected; U Opiates Screen DETECTED; U Oxycodone Screen Not Detected; U Phencyclidine Screen Not Detected; U Propoxyphene Screen Not Detected
[2020-06-07 20:00] LABS: Appearance, Urine Cloudy (Clear); Color, Urine Yellow (P-Yellow)
[2020-06-07 20:01] LABS: Bacteria Many /hpf; Red Blood Cells, Urine 0-2 /hpf (0-2); Squamous Epithelial Cells Few /hpf (Few); White Blood Cells, Urine TNTC /hpf (0-5)
[2020-06-08 02:22] LABS: BASOPHILS ABSOLUTE AUTO 0.04 K/mm3 (0.00-0.23); BASOPHILS PERCENT AUTO 0 % (0-2); EOSINOPHILS ABSOLUTE AUTO 0.08 K/mm3 (0.00-0.68); EOSINOPHILS PERCENT AUTO 1 % (0-6); Hematocrit 27.7 % (33.0-51.0); Hemoglobin 8.3 g/dL (11.5-16.0); IMMATURE GRAN ABSOLUTE AUTO 0.09 K/mm3 (0.00-0.10); IMMATURE GRAN PERCENT AUTO 1 % (0-1); LYMPHOCYTES PERCENT AUTO 17 % (21-46); MONOCYTES ABSOLUTE AUTO 1.57 K/mm3 (0.16-1.47); MONOCYTES PERCENT AUTO 14 % (4-13); Mean Corpuscular HGB 26.3 pg (26.0-34.0); Mean Corpuscular Volume 88 fL (80-100); Mean Platelet Volume 9.6 fL (9.1-12.4); NEUTROPHILS ABSOLUTE AUTO 7.35 K/mm3 (1.96-9.15); NEUTROPHILS PERCENT AUTO 67 % (41-73); NRBC ABSOLUTE 0.03 K/mm3 (0.00-0.02); NRBC Auto 0.3 /100 WBC (0.0-0.2); Platelet Count 341 K/mm3 (150-400); RDW Coefficient Variation 17.7 % (11.7-14.2); RDW Standard Deviation 56.6 fL (35.1-46.3); Red Blood Cell Count 3.15 M/mm3 (3.80-5.20); White Blood Cell Count 11.03 K/mm3 (4.00-11.30)
[2020-06-08 02:37] LABS: Bun/Creatinine Ratio 15.4 (12.0-20.0); Calcium, Blood 7.9 mg/dL (8.5-10.1); Creatinine, Blood 1.04 mg/dL (0.40-1.00); Potassium, Blood 3.5 mmol/L (3.5-5.5)
--- NOTE | 2020-06-08 06:17 | NUR ---
SHIFT SUMMARY- PT. NEW ADMIT FROM ED. PT. DROWSY WHEN ARRIVED TO THE UNIT. TRANSFERRED ONTO BED BY NURSING STAFF. PT. ALERT TO SELF WITH SOME CONFUSION. PT. RECEIVED 1 UNIT OF PRBC, 2 K RIDERS, AND ON PROTONIX GTT. TOLERATED WELL. NO S/S OF REACTION. PT. VERY ANXIOUS THIS AM. MEDICATED WITH IV ATIVAN WITH NO RELIEF. PT. CONT TO BE VERY ANXIOUS, ATTEMPTING TO GET OOB AND SHAKING. PHYSICIAN NOTIFIED, ONE TIME ORDER FOR IV ATIVAN GIVEN.
--- NOTE | 2020-06-08 12:06 | NUR ---
PT TRANSFERRED FROM 341 TO ROOM 344, RECEIVED REPORT FROM ANDRAE SIM. PT HERE FOR GI BLEED, PMH ANEMIA, STAGE 3 CKD, CHRONIC PAIN, ETOH, AND BREAST CANCER. PT IS ON CONTACT PRECAUTION FOR ESBL IN URINE. PT IS ON 1L O2 NEEDED. NO TELE. PT IS 1 PERSON ASISST. NPO FOR EGD TODAY. 2 IV ACCESS RAC AND R WRIST. BED IS IN THE LOWEST POSITION, CALL LIGHT WITHIN REACH, AND WILL CONTINUE MONITOR.
--- NOTE | 2020-06-08 12:07 | NUR ---
SHIFT SUMMARY/XFER TO 344 PT HAS HAD NO ACUTE CHANGES THIS SHIFT, HAS BEEN ANXIOUS & IMPULSIVE, 0.5 ATIVAN ADMIN W/NO RESULTS, WORKED W/PT & OT THIS AM, 1 ASSIST TO BSC, HAS BEEN CONFUSED AND HAS DIFFICULTY FOLLING DIRECTIONS BUT RECOGNIZES HER CONFUSION, REPORT GIVEN TO IRWIN RN TO ASSUME CARE, PT XFER'D VIA W/C TO 344 @ 1200, BED ALARM ACTIVE, RONEY ELY @ BEDSIDE.
--- NOTE | 2020-06-08 13:13 | NUR ---
PT TRANSFERED TO [facility] FROM ROOM VIA GURNEY. History, Chart, Medications and Allergies reviewed before start of procedure. Lungs clear T/O to Auscultation. Patient confirms NPO status and agrees with scheduled surgery. Pre-Op teaching done. Pt verbalizes understanding.
--- NOTE | 2020-06-08 13:51 | NUR ---
SPOKE WITH PATIENTS DAUGHTER JIAN WHO HAS CONCERNS ABOUT PATIENT DISCHARGING BACK HOME AND DOES NOT FEEL SHE IS SAFE. WHILE PATIENT WAS IN THE HOSPITAL JIAN WENT OVER TO HER HOME AND FOUND NARCOTIC BOTTLES EMPTY AROUND THE HOUSE. DAUGHTER DOES NOT KNOW HOW SHE CAME INTO POSESSION OF THESE NARCOTICS AND THE NAMES ON THE BOTTLES WERE TORN OFF. SHE ALSO MENTIONED THAT THERE WAS A PRESCRIPTION FOR A "MUSCLE RELAXER" THAT WAS JUST FILLED ON 06/06/20 AND HAD 10 PILLS ALREADY MISSING OUT OF 14. [address] WALTON AND ASAEL SHEPHERDNER FOR [facility] WILKINS.
--- NOTE | 2020-06-08 14:03 | NUR ---
06/08/20 1403 MATY HAYES History, Chart, Medications and Allergies reviewed before start of procedure. 3-LEAD EKG REVIEWED WITH PHYSICIAN PRIOR TO START OF PROCEDURE. O2 VIA N/C INTACT THROUGHOUT SEDATION/PROCEDURE. MONITOR INTACT WITH CONTINUOUS PULSE OXIMETRY AND INTERMITTENT BP. MAC WITH DR. ADAIR.
--- NOTE | 2020-06-08 15:02 | NUR ---
PT RETURNED FROM EGD SCOPE. VS WNL, PT RESTING AND COMFORTABLE. WILL CONTINUE REASSESS.
--- NOTE | 2020-06-08 17:58 | NUR ---
PT IS A 69 YO FEMALE, WHO WAS TRANSFERRED FROM MEDICAL ROOM 341 TO 344. ON 1L O2 PRN. PT WAS RESTLESS TODAY. PT WENT DOWN FOR EGD TODAY DUE TO MELENA, AND FOUND OUT THAT SHE HAS GASTRIC ULCER AND DUODENAL ULCER. VSS WAS WNL. PT SWITCHED FROM PROTONIX 40MG IN NS50ML TO PROTONIX 40MG IV BID. LR IS INFUSING @75ML/HR. PT HAD ATIVAN PRIOR TO EGD SCOPE, AND DID NOT NEED IT AGAIN FOR THE REST OF THE DAY. NO C/O OF PAIN, NAUSEA OR VOMITING. PT IS NOW ON FULL LIQUID DIET, TOLERATED AND ATE WELL. BED IS IN THE LOWEST POSITION, CALL LIGHTS WITHIN REACH, BED ALAM ON, AND WILL CONTINUE MONITOR UNTIL THE NEXT SHIFT REPORT.
--- NOTE | 2020-06-09 04:05 | NUR ---
SHIFT SUMMARY ASSUMED CARE OF PT AT 1900. PT WAS A/OX1 AT THE BEGINNING OF THE SHIFT, PT WOULD YELL AND MOAN IN HER SLEEP, TELLING A MYSTERIOUS MAN TO GET OUT OF HER ROOM. AT AROUND 0200, PT WAS A/OX3 AND REMEBERING EVENTS IN THE HOSPITAL, PT DID NOT RECALL SCREAMING ABOUT A MAN COMING IN HER ROOM, NOR DID SHE SAY SHE HAD ANY TRAUMA IN HER LIFE THAT WOULD MAKE HER THINK SO. AFTER PT SLEPT FOR ABOUT 1 HOUR,@ 0400, PT AWOKE STARTED AND SHKING, THIS NURSE ASKED IF SHE TAKES NARCOTICS AT HOME AND IF HER TOOK ANY, PT DENIED, PT STATED THAT SHE GETS SHAKES AT HOME BUT THEY GOOD AWAY AFTER SHE FALLS BACK ASLEEP, DURING THIS COMVERSATION PT REMEMERED THE MYSTERIOUS MAN AND ASKED IF HE WOULD COME GET HER, THEN PT STARTED TO CRY AND SAID THAT SHE FELT THAT HER MIND A SLIPPING AGAIN. LUNG SOUNDS CLEAR, HEART SOUNDS REGULAR, DENIES SOB/CP. PT IS CONTINENT OF URINE, PT USED THE BEDSIDE COMMODE WITH MINIMAL ASSISTANCE. PT SLEPT FOR A MAJORITY OF THE NIGHT. CALL LIGHT IN REACH, BED IN LOWEST POSTION, BED ALARM ON.
[2020-06-09 05:32] LABS: BASOPHILS ABSOLUTE AUTO 0.03 K/mm3 (0.00-0.23); BASOPHILS PERCENT AUTO 0 % (0-2); EOSINOPHILS PERCENT AUTO 2 % (0-6); Hematocrit 29.6 % (33.0-51.0); Hemoglobin 8.7 g/dL (11.5-16.0); IMMATURE GRAN ABSOLUTE AUTO 0.04 K/mm3 (0.00-0.10); IMMATURE GRAN PERCENT AUTO 1 % (0-1); LYMPHOCYTES ABSOLUTE AUTO 0.99 K/mm3 (0.84-5.20); LYMPHOCYTES PERCENT AUTO 15 % (21-46); MONOCYTES ABSOLUTE AUTO 1.19 K/mm3 (0.16-1.47); MONOCYTES PERCENT AUTO 18 % (4-13); Mean Corpuscular HGB 26.1 pg (26.0-34.0); Mean Corpuscular HGB Conc 29.4 g/dL (31.5-36.5); Mean Corpuscular Volume 89 fL (80-100); Mean Platelet Volume 10.1 fL (9.1-12.4); NEUTROPHILS ABSOLUTE AUTO 4.45 K/mm3 (1.96-9.15); NEUTROPHILS PERCENT AUTO 65 % (41-73); Platelet Count 275 K/mm3 (150-400); RDW Coefficient Variation 18.1 % (11.7-14.2); RDW Standard Deviation 58.3 fL (35.1-46.3); Red Blood Cell Count 3.33 M/mm3 (3.80-5.20)
--- NOTE | 2020-06-09 18:03 | NUR ---
SHIFT SUMMARY: NO ACUTE EVENTS THIS SHIFT. MENTATION APPEARS CLEARER AT END OF SHIFT. TOLERATING DIET, ADVANCED TO REGULAR. DENIES PAIN. WORKED WITH PHYSICAL THERAPY, AMBULATED IN HALLWAY WITH FWW. GETTING UP TO BS WITH SBA. NUMBNESS AND TINGLING IS INTERMITTENT IN BILATERAL FEET AND THIGHS. PATIENT WILL HAVE NO RIDE HOME UNTIL EARLY THURSDAY MORNING OR LATE THURSDAY AFTERNOON (DAUGHTER IS OUT OF TOWN FOR WEEKEND).
[2020-06-10 05:13] LABS: BASOPHILS ABSOLUTE AUTO 0.06 K/mm3 (0.00-0.23); BASOPHILS PERCENT AUTO 1 % (0-2); EOSINOPHILS ABSOLUTE AUTO 0.21 K/mm3 (0.00-0.68); EOSINOPHILS PERCENT AUTO 3 % (0-6); Hematocrit 30.8 % (33.0-51.0); IMMATURE GRAN ABSOLUTE AUTO 0.08 K/mm3 (0.00-0.10); IMMATURE GRAN PERCENT AUTO 1 % (0-1); LYMPHOCYTES ABSOLUTE AUTO 1.74 K/mm3 (0.84-5.20); LYMPHOCYTES PERCENT AUTO 23 % (21-46); MONOCYTES ABSOLUTE AUTO 1.64 K/mm3 (0.16-1.47); MONOCYTES PERCENT AUTO 22 % (4-13); Mean Corpuscular HGB 25.9 pg (26.0-34.0); Mean Corpuscular HGB Conc 29.2 g/dL (31.5-36.5); Mean Corpuscular Volume 89 fL (80-100); Mean Platelet Volume 10.1 fL (9.1-12.4); NEUTROPHILS ABSOLUTE AUTO 3.73 K/mm3 (1.96-9.15); NEUTROPHILS PERCENT AUTO 50 % (41-73); Platelet Count 326 K/mm3 (150-400); RDW Coefficient Variation 18.2 % (11.7-14.2); RDW Standard Deviation 57.1 fL (35.1-46.3); Red Blood Cell Count 3.47 M/mm3 (3.80-5.20); White Blood Cell Count 7.46 K/mm3 (4.00-11.30)
[2020-06-10 05:38] LABS: Anion Gap 9 mmol/L (6-16); Blood Urea Nitrogen 6 mg/dL (8-24); Bun/Creatinine Ratio 7.2 (12.0-20.0); CO2, Blood 22 mmol/L (21-32); Calcium, Blood 8.4 mg/dL (8.5-10.1); Chloride, Blood 110 mmol/L (98-108); Creatinine, Blood 0.83 mg/dL (0.40-1.00); Glomerular Filtration Rate >60 (60-); Glucose, Blood 77 mg/dL (70-99); Potassium, Blood 3.9 mmol/L (3.5-5.5); Sodium, Blood 141 mmol/L (136-145)
--- NOTE | 2020-06-10 06:45 | NUR ---
06/10/20 0615 ASSISTED UP TO [facility] FOR NORMAL BM. PT SLEPT ON AND OFF LAST NIGHT. UP SEVERAL TIMES TO VOID. TAKING SNACKS ON AND OFF LAST NIGHT. MORE ALERT THIS SHIFT AND CALLS APPROPRIATELY.
--- NOTE | 2020-06-10 12:51 | NUR ---
PATIENT REASSESSED PRIOR TO D/C. IS A&O X 4, PLEASANT AND COOPERATIVE. HAS CALED NEIGHBOR TO PICK HER UP AT D/C. ABLE TO WALK TO BR (40 FEET) UNAIDED, BUT STATED SHE HAS FWW AND 4WW AT HOME. PT STATED SHE IS ABLE TO PREPARE FOOD AT HOME UNTIL HER DAUGHTER GETS HOME TOMORROW. PT STATED SHE FEELS SAFE TO DISCHARGE HOME TODAY, WANTS RX CALLED IN TO [facility] EVEN THOUGH THEY'RE CLOSED TODAY. CALLED PATIENT'S DAUGHTER JIAN TO NOTIFY HER OF D/C, NO ANSWER, LEFT MESSAGE.
[2020-06-10] MEDS ORDERED: CEPH500 PO (13:28)
[2020-06-10] MEDS ORDERED: PANT40 PO (13:30)
--- NOTE | 2020-06-10 15:00 | NUR ---
PATIENT DISCHARGED TO HOME, NEIGHBOR IS PICKING HER UP. NEW RX CALLED IN TO [facility] IN [place] PER PATIENT REQUEST; SHE VERBALIZED UNDERSTANDING THAT PHARMACY WILL NOT BE OPEN UNTIL THURSDAY DUE TO HOLDAY TOMORROW AND THAT THIS WILL IMPART A DELAY IN HER DRUG THERAPY FOR GASTRIC ULCERS AND UTI. IV SALINE LOCK REMOVED WITHOUT INCIDENT. HAS ALL BELONGINGS. LEFT UNIT AT
== END 2020-06-10 14:56 | disposition home or self-care (01) | DRG 378 ==
LOC: ER 15:37 → MEDS 15:38 → EDBEDREQ 20:57 → MEDS 21:22
PROVIDERS: Emergency Medicine; Internal Medicine; Nurse Practitioner Acute Care; Physician Assistant; Student in an Organized Health Care Education/Training Program; ADMIT Family Medicine
PROC: 30233N1 Transfusion of Nonautologous Red Blood Cells into Peripheral Vein, Percutaneous Approach (ICD-10-PCS; principal; 2020-06-07)
PROC: 0DB68ZX Excision of Stomach, Via Natural or Artificial Opening Endoscopic, Diagnostic (ICD-10-PCS; 2020-06-08)
PROC: 0DB58ZX Excision of Esophagus, Via Natural or Artificial Opening Endoscopic, Diagnostic (ICD-10-PCS; 2020-06-08 13:30)
DX: K26.4 Chronic or unspecified duodenal ulcer with hemorrhage (principal); D62 Acute posthemorrhagic anemia; N39.0 Urinary tract infection, site not specified; E87.6 Hypokalemia; F41.9 Anxiety disorder, unspecified; N18.3 Chronic kidney disease, stage 3 (moderate); F11.10 Opioid abuse, uncomplicated; J44.9 Chronic obstructive pulmonary disease, unspecified; M81.0 Age-related osteoporosis without current pathological fracture; Z87.891 Personal history of nicotine dependence; K44.9 Diaphragmatic hernia without obstruction or gangrene; G89.4 Chronic pain syndrome; K22.2 Esophageal obstruction; I12.9 Hypertensive chronic kidney disease with stage 1 through stage 4 chronic kidney disease, or unspecified chronic kidney disease; B96.20 Unspecified Escherichia coli [E. coli] as the cause of diseases classified elsewhere; E78.5 Hyperlipidemia, unspecified; R25.1 Tremor, unspecified; G47.00 Insomnia, unspecified; F32.9 Major depressive disorder, single episode, unspecified
CPT/HCPCS: 36415; 36430; 80048; 80053; 81001; 82272; 82941; 83735; 83930; 85025; 85610; 85730; 86850; 86900; 86901; 86923; 87077; 87086; 87186; 88305; 88312; 88342; 96365; 96375; 96376; 97110; 97116; 97162; 97166; 99284-25; A9270; C9113; G0378; G0480; J0696; J2001; J2060; J2250; J2405; J2704; J3480; J7050; J7120; P9016; U0002